=== PATIENT | male | born 1940 | race Caucasian/White ===

== ENCOUNTER 2018-03-22 14:35 | Emergency (ER) | payer MEDICARE, OTHER, SELFPAY ==
[2018-03-22 14:35] VITALS: BP 152/84; PULSE 66; RESP 18; TEMP 36.8; O2SAT 98
--- NOTE | 2018-03-22 14:54 | ED.NEUROSD ---
HPI - Neuro Symptoms/Deficit General Chief Complaint: Neuro Symptoms/Deficit Stated Complaint: DIZZY, NO BALANCE, DOUBLE VISION Time Seen by Provider: 03/22/18 14:47 Source: patient Mode of arrival: ambulatory Limitations: no limitations History of Present Illness HPI Narrative: Patient is a 77-year-old male with a history of TIAs on aspirin here for evaluation of double vision. Patient states that he has had occasional double vision over the past 3 days. He also states that when he gets that he becomes ?unsteady? he says that he sees 2 of things that are [id number]. He thinks that it does happen more often when he becomes ?fatigue ?he also states that if he thinks about he can overcome the double vision. He does state that the vision goes away when he covers 1 eye. He does have some blurry vision. He states that at the blurred vision is more in his right eye than the left eye. No headaches. No ringing in his ears. No vertigo. No chest pain. No palpitations. Has had cataract surgery in the past but no other eye surgeries. His last eye exam for his glasses was approximately 4 years ago. Related Data Home Medications Medication Instructions Recorded Confirmed aspirin 81 mg PO DAILY #0 11/03/17 03/22/18 Allergies Allergy/AdvReac Type Severity Reaction Status Date / Time No Known Drug Allergies Allergy Verified 03/22/18 15:07 Review of Systems Constitutional Denies fatigue, Denies fever(s), Denies frequent falls and Denies headache(s) Eyes Reports blurry vision, Reports change in vision, Reports diplopia, Denies irritation, Denies itchy eyes, Denies loss of vision, Denies seeing flashes, Denies photophobia and Denies spots in vision ENT Ears, Nose, Mouth, and Throat: Denies dental pain, Denies vertigo, Reports dizziness, Denies headache(s), Denies neck mass, Denies neck pain, Denies sore throat and Denies throat swelling Cardiovascular Denies chest pain, Denies syncope, Denies palpitations and Denies dyspnea Respiratory Denies cough and Denies dyspnea Gastrointestinal Gastrointestinal: Denies abdominal pain, Denies constipation, Denies diarrhea, Denies nausea and Denies vomiting Genitourinary Denies dysuria Musculoskeletal Denies myalgias, Denies arthralgias and Denies neck pain Integumentary/Breasts Denies lesions and Denies rash Neurologic Denies confusion, Denies vertigo, Reports dizziness, Denies syncope, Denies frequent falls, Denies headache(s), Denies loss of vision and Denies memory loss Psychiatric Denies confusion and Denies memory loss Endocrine Denies fatigue and Denies palpitations Hematologic/Lymphatic Denies easy bleeding and Denies easy bruising Allergic/Immunologic Denies itchy eyes and Denies throat swelling [facility] Medical History TIA (transient ischemic attack) (Acute) Social History Smoking Status: Never smoker Comment: Reviewed patient's past medical history surgical family and social history Exam Initial Vital Signs Initial Vital Signs: Vital Signs Temperature 98.2 F 03/22/18 14:35 Pulse Rate 66 03/22/18 14:35 Respiratory Rate 18 03/22/18 14:35 Blood Pressure 152/84 H 03/22/18 14:35 Pulse Oximetry 98 03/22/18 14:35 Const General: cooperative, healthy appearing, comfortable, well developed, well groomed and No acute distress Orientation: alert and oriented x3 HENMT Head: normal to inspection, normocephalic and atraumatic Eyes Other: Pupils equal round reactive to light Extraocular muscles intact With evaluation patient does see double. The double vision resolves when left and right eye are individually covered. With covering of the left eye double vision resolves however with uncover the eye does appear to have deviated medially which then improves when young cover this eye. Resp Effort & Inspection: normal respiratory effort Cardio Rate: regular rate Rhythm: regular rhythm Pulses: radial pulses present Skin Lesions: no lesions Rashes: no rashes Neuro General: alert, awake and oriented x3 Cranial Nerves: CN's II-XI intact bilaterally Cognition: normal cognition Speech: speech normal Gait: normal gait Motor: muscle tone normal throughout Extrem General: normal to inspection, full ROM and capillary refill normal Psych Appearance: grossly normal and well kempt Course Orders Ordered: ED Orders 03/22/18 14:52 EKG-12 Lead Stat 03/22/18 15:01 Complete Blood Count MAN DIFF Stat Partial Thromboplastin Time Stat Prothrombin Time INR Stat 03/22/18 15:25 Comprehensive Metabolic Panel Stat 03/22/18 15:27 CT head/brain wo con Stat Vital Signs - 8 hr 03/22/18 14:35 03/22/18 15:03 03/22/18 15:43 Temperature 98.2 F Pulse Rate 66 67 66 Respiratory Rate 18 14 16 Blood Pressure 152/84 H Blood Pressure [Right Arm] 133/97 H 141/85 H Pulse Oximetry 98 99 98 03/22/18 16:24 Temperature Pulse Rate 63 Respiratory Rate 15 Blood Pressure Blood Pressure [Right Arm] 161/98 H Pulse Oximetry 98 MDM - Neuro Symptoms/Deficit Lab Data Attestation: I reviewed the patient's lab results. Result diagrams: 03/22/18 15:01 03/22/18 15:25 Lab Results 03/22/18 03/22/18 03/22/18 Range/Units 15:01 15:01 15:25 WBC 8.4 (4.5-11.0) X10^3/uL RBC 4.91 (4.5-5.9) X10^6/uL Hgb 15.4 (13.5-17.5) g/dL Hct 44.4 (41-53) % MCV 90.4 (80-100) fL MCH 31.4 (26-34) PG MCHC 34.7 (30-36) % RDW 12.8 (11.6-14.8) % Plt Count 224 (150-400) X10^3/uL Total Counted 100 Seg Neutrophils % 53.0 (38-70) % Lymphocytes % (Manual) 29.0 (25-45) % Monocytes % (Manual) 12.0 H (2-11) % Eosinophils % (Manual) 5.0 H (2-4) % Basophils % (Manual) 1.0 (0-1) % Neutrophils # (Manual) 4452 (2137-9827) /uL RBC Morphology Normal morphology PT 11.9 (10.1-12.7) SECONDS INR 1.1 (0.9-1.3) APTT 30 (26.4-36.2) SECONDS Sodium 140 (137-145) mmol/L Potassium 4.4 (3.4-5.1) mmol/L Chloride 104 (98-107) mmol/L Carbon Dioxide 28 (22-32) mmol/L BUN 17 (9-20) mg/dL Creatinine 1.00 (0.66-1.25) mg/dL Estimated GFR > 60.0 (>60) mL/min BUN/Creatinine Ratio 17.0 (6-22) Glucose 90 (80-110) mg/dL Calcium 8.5 (8.4-10.2) mg/dL Total Bilirubin 0.4 (0.2-1.3) mg/dL AST 20 (17-59) IU/L ALT 25 (21-72) IU/L Alkaline Phosphatase 54 (38-126) U/L Total Protein 7.1 (6.3-8.2) g/dL Albumin 3.9 (3.5-5.0) g/dL Globulin 3.2 (1.7-4.1) g/dL Albumin/Globulin Ratio 1.2 (1.0-2.8) Urine Opiates Screen Ur Oxycodone Screen Urine Methadone Screen Ur Barbiturates Screen U Tricyclic Antidepress Ur Phencyclidine Scrn Ur Amphetamines Screen U Methamphetamines Scrn Ur MDMA Scrn (Ecstasy) U Benzodiazepines Scrn Urine Cocaine Screen U Marijuana (THC) Screen 03/22/18 Range/Units 16:18 WBC (4.5-11.0) X10^3/uL RBC (4.5-5.9) X10^6/uL Hgb (13.5-17.5) g/dL Hct (41-53) % MCV (80-100) fL MCH (26-34) PG MCHC (30-36) % RDW (11.6-14.8) % Plt Count (150-400) X10^3/uL Total Counted Seg Neutrophils % (38-70) % Lymphocytes % (Manual) (25-45) % Monocytes % (Manual) (2-11) % Eosinophils % (Manual) (2-4) % Basophils % (Manual) (0-1) % Neutrophils # (Manual) (3200-3099) /uL RBC Morphology PT (10.1-12.7) SECONDS INR (0.9-1.3) APTT (26.4-36.2) SECONDS Sodium (137-145) mmol/L Potassium (3.4-5.1) mmol/L Chloride (98-107) mmol/L Carbon Dioxide (22-32) mmol/L BUN (9-20) mg/dL Creatinine (0.66-1.25) mg/dL Estimated GFR (>60) mL/min BUN/Creatinine Ratio (6-22) Glucose (80-110) mg/dL Calcium (8.4-10.2) mg/dL Total Bilirubin (0.2-1.3) mg/dL AST (17-59) IU/L ALT (21-72) IU/L Alkaline Phosphatase (38-126) U/L Total Protein (6.3-8.2) g/dL Albumin (3.5-5.0) g/dL Globulin (1.7-4.1) g/dL Albumin/Globulin Ratio (1.0-2.8) Urine Opiates Screen Cancelled Ur Oxycodone Screen Cancelled Urine Methadone Screen Cancelled Ur Barbiturates Screen Cancelled U Tricyclic Antidepress Cancelled Ur Phencyclidine Scrn Cancelled Ur Amphetamines Screen Cancelled U Methamphetamines Scrn Cancelled Ur MDMA Scrn (Ecstasy) Cancelled U Benzodiazepines Scrn Cancelled Urine Cocaine Screen Cancelled U Marijuana (THC) Screen Cancelled Imaging Data CT scan - head: Radiologist's impression: PROCEDURE: CT HEAD/BRAIN WO CON INDICATIONS: Double vision TECHNIQUE: Noncontrast 4.5 mm thick angled axial sections acquired from the foramen magnum to the vertex, with coronal and sagittal reformats. For radiation dose reduction, the following was used: automated exposure control, adjustment of mA and/or kV according to patient size. COMPARISON: None. FINDINGS: Image quality: Excellent. CSF spaces: Basal cisterns are patent. No extra-axial fluid collections. The ventricles are symmetric in size and shape. Brain: No intracranial bleeds or masses. There is cerebral volume loss for age, with resultant ventricular and sulcal prominence. There are periventricular and deep white matter chronic small vessel ischemic changes. There is intracranial internal carotid artery atherosclerosis. Skull and face: Calvarium and visualized facial bones appear intact, without suspicious lesions. Sinuses: Visualized sinuses and mastoids are clear. IMPRESSION: No acute intracranial findings. Findings likely associated with chronic microvascular ischemic changes. Dictated by: Yuliet Roblero M.D. on 03/22/2018 at 16:01 Approved by: Yuliet Roblero M.D. on 03/22/2018 at 16:03 ECG Data Attestation: I personally reviewed and interpreted this ECG as follows: Prior ECG tracings: not available for review Interpretation: Sinus rhythm First degree AV block Ventricular rate is 73 P interval 260 milliseconds QRS 119 milliseconds QTC 416 milliseconds Left axis deviation Incomplete right bundle branch block Nonspecific ST T wave changes MDM Narrative Medical decision making narrative: Head CT is unremarkable. Patient has had symptoms for the past 3 days. 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 Patient does have a history of TIAs in the past however this is not consistent with his prior TIA symptoms which is normally slurring of his words. We did discuss the 6th nerve palsy. Informed him that he should see his eye doctor for a new evaluation since he has not seen them for 3 or 4 years. He was given return precautions. Will hold on further workup for now. He expressed understanding and agreement with plan Discharge Plan Departure Patient Disposition: Home, Self-Care Clinical Impression: Abducens (sixth) nerve palsy Discharge Date/Time: 03/22/18 16:30 Interventions: ED Discharge Assessment Last Done: 03/22/18 16:29 Instructions: DI for Double Vision Activity Restrictions/Additional Instructions: Recommend that you contact your eye provider to get another eye exam to make sure your glasses or the correct prescription. Contact your primary care doctor for a follow-up next week. Return to the emergency department for any new or worsening symptoms continue your aspirin as directed. Prescriptions: No Action aspirin 81 MG tablet,delayed release (DR/EC) 81 mg PO DAILY Qty: 0 RF: 0
[2018-03-22 15:03] VITALS: BP 133/97; PULSE 67; RESP 14; O2SAT 99
[2018-03-22 15:08] LABS: Hematocrit 44.4 % (41-53); Hemoglobin 15.4 g/dL (13.5-17.5); Mean Corpuscular HGB Conc 34.7 % (30-36); Mean Corpuscular Hemoglobin 31.4 PG (26-34); Mean Corpuscular Volume 90.4 fL (80-100); Platelet Count 224 X10^3/uL (150-400); Red Blood Cell Count 4.91 X10^6/uL (4.5-5.9); Red Cell Distribution Width 12.8 % (11.6-14.8); White Blood Cell Count 8.4 X10^3/uL (4.5-11.0)
[2018-03-22 15:22] LABS: INR 1.1 (0.9-1.3); Prothrombin Time 11.9 SECONDS (10.1-12.7)
[2018-03-22 15:25] LABS: PTT Partial Thromboplastin Tim 30 SECONDS (26.4-36.2)
--- NOTE | 2018-03-22 15:27 | DI.CT.S_ITS ---
PROCEDURE: CT HEAD/BRAIN WO CON INDICATIONS: Double vision TECHNIQUE: Noncontrast 4.5 mm thick angled axial sections acquired from the foramen magnum to the vertex, with coronal and sagittal reformats. For radiation dose reduction, the following was used: automated exposure control, adjustment of mA and/or kV according to patient size. COMPARISON: None. FINDINGS: Image quality: Excellent. CSF spaces: Basal cisterns are patent. No extra-axial fluid collections. The ventricles are symmetric in size and shape. Brain: No intracranial bleeds or masses. There is cerebral volume loss for age, with resultant ventricular and sulcal prominence. There are periventricular and deep white matter chronic small vessel ischemic changes. There is intracranial internal carotid artery atherosclerosis. Skull and face: Calvarium and visualized facial bones appear intact, without suspicious lesions. Sinuses: Visualized sinuses and mastoids are clear. IMPRESSION: No acute intracranial findings. Findings likely associated with chronic microvascular ischemic changes. Dictated by: Yuliet Roblero M.D. on 03/22/2018 at 16:01 Approved by: Yuliet Roblero M.D. on 03/22/2018 at 16:03
[2018-03-22 15:43] VITALS: BP 141/85; PULSE 66; RESP 16; O2SAT 98
[2018-03-22 15:48] LABS: Alanine Aminotransferase 25 IU/L (21-72); Albumin 3.9 g/dL (3.5-5.0); Albumin Globulin Ratio 1.2 (1.0-2.8); Alkaline Phosphatase 54 U/L (38-126); Aspartate Aminotransferase 20 IU/L (17-59); Bilirubin Total 0.4 mg/dL (0.2-1.3); Blood Urea Nitrogen 17 mg/dL (9-20); Calcium 8.5 mg/dL (8.4-10.2); Carbon Dioxide 28 mmol/L (22-32); Chloride 104 mmol/L (98-107); Estimated Glomerular Filt Rate > 60.0 mL/min (>60); Globulin 3.2 g/dL (1.7-4.1); Glucose 90 mg/dL (80-110); HEMOLYSIS < 15 (0-50); Potassium 4.4 mmol/L (3.4-5.1); Sodium 140 mmol/L (137-145); Total Protein 7.1 g/dL (6.3-8.2)
[2018-03-22 15:50] LABS: Neutrophils Absolute Manual 4452 /uL (3000-5900); Total Cells Counted 100
[2018-03-22 15:51] LABS: RBC Morphology Normal Morphology
[2018-03-22 16:24] VITALS: BP 161/98; PULSE 63; RESP 15; O2SAT 98
== END 2018-03-22 16:30 | disposition home or self-care (01) ==
PROVIDERS: Emergency Provider Emergency Medicine; Family Provider Family Medicine; PCP Family Medicine
DX: H49.20 Sixth [abducent] nerve palsy, unspecified eye (principal)
CPT/HCPCS: 36591; 70450; 80053; 85025; 85610; 85730; 93005; 99283; 99285; 99291

== ENCOUNTER → 2018-03-27 10:43 | Outpatient (CLI) | payer MEDICARE, OTHER, SELFPAY ==
[2018-03-27 15:35] LABS: Blood Urea Nitrogen 21 mg/dL (9-20); Calcium 8.6 mg/dL (8.4-10.2); Carbon Dioxide 24 mmol/L (22-32); Chloride 103 mmol/L (98-107); Estimated Glomerular Filt Rate > 60.0 mL/min (>60); Glucose 88 mg/dL (80-110); Sodium 139 mmol/L (137-145)
[2018-03-27 15:40] LABS: HEMOLYSIS 72 (0-50); Potassium 4.6 mmol/L (3.4-5.1)
== END ==
PROVIDERS: PCP Family Medicine; Visit Provider Ophthalmology
DX: M19.90 Unspecified osteoarthritis, unspecified site (principal); H53.2 Diplopia
CPT/HCPCS: 36415; 80048

== ENCOUNTER → 2018-04-07 07:02 | Outpatient (CLI) | payer MEDICARE, OTHER, SELFPAY ==
--- NOTE | 2018-04-07 | DI.MRI.S_ITS ---
PROCEDURE: MR STROKE Pre- and post-contrast brain MRI, non-contrast brain MR angiogram, pre- and postcontrast neck MR angiogram INDICATIONS: MR. STROKE TECHNIQUE: Brain: Noncontrast axial T1 spin echo, axial T2 fast spin echo, sagittal and axial FLAIR, coronal T2 fast spin echo, axial gradient echo, axial diffusion and ADC through the brain. After the administration of contrast, axial 3D VIBE of the cranial vasculature and brain. Brain MRA: Non-contrast 3-D time of flight MR angiogram, with multiple ockysms-ckyvvhhqm-yputotiqin (MIP) reformats performed. Neck MRA: Axial and sagittal TruFISP through the neck. Coronal dynamic MR angiogram during administration of contrast in the arterial and venous phases, with 3-dimenstional xeorkqe-ntfwyoeyb-cufuyuwxsf (MIP) reformats constructed from subtraction images. COMPARISON: [facility], , STROKE PROTOCOL, 10/20/2013, 11:42. FINDINGS: Image quality: Excellent. BRAIN: CSF spaces: Ventricles are normal in size and shape. Basal cisterns are patent. No extra-axial fluid collections. Brain: No intracranial bleeds or mass effects. Mcgraw-white matter interface is normal. Diffusion weighted images show no acute ischemic insults. Moderate diffuse cerebral and loss. Mild patchy low signal within the periventricular and subcortical white matter, consistent with small vessel ischemic disease, as before. Brainstem appears normal. Normal intravascular flow voids are present. No abnormal intracranial enhancement. Skull and face: Calvarial marrow signal is normal. Orbits appear normal. Sinuses: Sinuses and mastoids are clear. BRAIN MR ANGIOGRAM: Anterior circulation: Intracranial internal carotid arteries are normal in size and enhancement. The flow within the paired anterior cerebral arteries is normal and symmetric. The flow within the middle cerebral arteries is normal and symmetric. The anterior communicating artery is seen. No stenoses, occlusions, or aneurysms. Posterior circulation: The visualized portions of the vertebral arteries demonstrate normal caliber, and join to form a normal appearing basilar artery. The flow within the posterior cerebral arteries is normal and symmetric. No stenoses, occlusions, or aneurysms. NECK MR ANGIOGRAM: Carotids: Great vessels demonstrate a conventional anatomy as they arise from the aortic arch. The origins of the common carotid arteries appear patent. The calibers and courses of both common carotid arteries are normal. The bifurcation regions appear normal bilaterally. Left internal carotid artery pharyngeal loop is present. The internal carotid arteries otherwise demonstrate normal course and caliber. Posterior circulation: High-grade right vertebral artery origin stenosis. Left vertebral artery origin is patent.. More superior portions of both vertebral arteries demonstrate normal course and caliber, and join to form a normal appearing basilar artery. Miscellaneous: Subclavian arteries appear patent. Pre-contrast images through the neck show no soft tissue abnormalities. IMPRESSION: BRAIN MRI: 1. Volume loss and small vessel ischemic disease. 2. No acute process. No recent infarct. BRAIN MR ANGIOGRAM: Negative cerebral MR angiography. NECK MR ANGIOGRAM: 1. No internal carotid artery stenosis bilaterally. 2. High-grade right vertebral artery origin stenosis. Patent left vertebral artery. Dictated by: Piyush Celeste M.D. on 04/07/2018 at 12:33 Approved by: Piyush Celeste M.D. on 04/07/2018 at 12:39
== END ==
PROVIDERS: Family Provider Family Medicine; PCP Family Medicine; Visit Provider Family Medicine
DX: H53.2 Diplopia (principal); I65.01 Occlusion and stenosis of right vertebral artery
CPT/HCPCS: 70553; 83519; A9579

== ENCOUNTER 2019-03-02 14:33 | Observation (INO) | payer MEDICARE, OTHER, SELFPAY ==
[2019-03-02] VITALS (10 sets, daily range): BP systolic 108–189; BP diastolic 92–115; PULSE 64–84; RESP 11–20; TEMP 36.7–37; O2SAT 93–99; BMI 34.6
--- NOTE | 2019-03-02 14:45 | DI.CT.S_ITS ---
PROCEDURE: CT ANGIO HEAD AND NECK INDICATIONS: expressive aphasia, improving, but intermittent symptoms. TECHNIQUE: Pre-contrast 4.5 mm thick sections acquired from the foramen magnum to the vertex. After the administration of intravenous contrast, 1 mm thick sections acquired from the aortic arch through the [place]. Post-contrast 4.5 mm thick sections then re-acquired from the foramen magnum to the vertex. 3-dimensional rvxzpvf-puoicatlu-bgjtumprxl (MIP) and/or volume rendering reformats were acquired of the central intracranial vasculature and neck separately. COMPARISON: [facility], CT, CT HEAD/BRAIN WO CON, 03/02/2019, 14:47. FINDINGS: Image quality: Excellent. BRAIN: CSF spaces: Ventricles are normal in size and shape. Basal cisterns are patent. No extra-axial fluid collections. Brain: No midline shift. No intracranial bleeds or masses. Mcgraw-white matter interface appears intact. Skull and face: Calvarium and facial bones appear intact, without suspicious lesions. Orbits appear normal. Sinuses: Sinuses and mastoids are clear. HEAD CT ANGIOGRAPHY: Anterior circulation: Intracranial internal carotid arteries are normal in size and flow. The flow within the paired anterior cerebral arteries is normal and symmetric. The flow within the middle cerebral arteries is normal and symmetric. The anterior communicating artery is seen. No aneurysms are seen. Posterior circulation: Visualized portions of the vertebral arteries demonstrate normal caliber, and join to form a normal appearing basilar artery. Flow within the posterior cerebral arteries is normal and symmetric. No aneurysms are seen. NECK CT ANGIOGRAPHY: Carotid system: The great vessels demonstrate a conventional anatomy as they arise from the aortic arch. The origins of the common carotid arteries appear patent. The common carotid arteries demonstrate normal caliber and courses. The bifurcation regions are both widely patent with only a slight degree of calcific plaque narrowing the proximal internal carotid arteries bilaterally too small to be. The internal carotid arteries demonstrate normal calibers and courses. Posterior circulation: The origins of the vertebral arteries both appear widely patent. The more superior extracranial portions of both vertebral arteries also demonstrate normal courses and calibers. They join to form a normal appearing basilar artery. Soft tissues: Visualized neck soft tissues demonstrate no suspicious abnormalities. Bones: No suspicious bony lesions. Visualized cervical spine appears normally aligned. IMPRESSION: Mild atherosclerotic irregularity involving the proximal internal carotid arteries bilaterally with less than 10% stenosis produced by atherosclerotic calcific plaquing. No aneurysm or dissection is found. Portions of the brachiocephalic arteries are poorly seen due to extensive metal artifact from bilateral shoulder arthroplasties, and also a portion of the skull base arterial vasculature is somewhat poorly seen due to metal artifact from extensive dental work. Any quantitative measurements of stenosis were performed using NASCET criteria. Dictated by: Alexis Mims M.D. on 03/02/2019 at 16:13 Approved by: Alexis Mims M.D. on 03/02/2019 at 16:17
--- NOTE | 2019-03-02 14:45 | ED.NEUROSD ---
HPI - Neuro Symptoms/Deficit General Chief Complaint: Neuro Symptoms/Deficit Stated Complaint: POSSIBLE TIA Time Seen by Provider: 03/02/19 14:37 Source: patient and family () Mode of arrival: ambulatory Limitations: no limitations History of Present Illness HPI Narrative: 78-year-old male comes to the emergency department with complaint of possible TIA. Patient has had issues with expressive aphasia most recently starting in about heart hour prior arrival although it is improving. Patient states that he has had 2 maybe 3 episodes in the last 24 hours had episodes like this in the past probably 6 or 7 total. Patient states that some he takes an aspirin 324 mg daily he had 648 total mg of aspirin today. He does have an headache he denies any vision changes, he states he understands but has difficulty with speech. He states right now it is better although he has to concentrate a little bit. But he can say what he wants. According to him and his significant other earlier he could not say anything other than yes or no answers. Patient has not had any facial droop, no weakness on left versus right, no chest pain, no shortness of breath, no nausea vomiting no other GI or urinary symptoms. Patient takes medication for GERD, insomnia and takes potassium replaced his [id number] or cramping. Has a history of shoulder and knee replacements x2 as well as appendectomy. Dr. Cortes was his primary care he is being transferred to Dr. Noguera the new physician replacing Sebastian denies tobacco, occasional alcohol, no illicit. On Anticoagulants: Yes (ASA 325mg) Related Data Home Medications Medication Instructions Recorded Confirmed aspirin 81 mg PO DAILY #0 11/03/17 03/02/19 hydrocodone-chlorpheniramine 5 ml PO Q12H PRN 03/02/19 03/02/19 meloxicam 15 mg PO DAILY PRN 03/02/19 03/02/19 multivitamin 1 tab PO DAILY 03/02/19 03/02/19 omeprazole 20 mg PO DAILY 03/02/19 03/02/19 sildenafil (antihypertensive) 40 - 100 mg PO PRN PRN 03/02/19 03/02/19 Allergies Allergy/AdvReac Type Severity Reaction Status Date / Time No Known Drug Allergies Allergy Verified 03/02/19 14:45 Review of Systems Review of Systems ROS Unobtainable: All systems reviewed & are unremarkable except as noted in HPI and below Constitutional Denies chills, Denies fever(s), Denies lethargy and Denies weakness Eyes Denies change in vision ENT Ears, Nose, Mouth, and Throat: Denies vertigo and Denies other (facial dropp) Cardiovascular Denies chest pain, Denies irregular heart rhythm, Denies lightheadedness, Denies palpitations, Denies dyspnea, Denies dyspnea on exertion and Denies orthopnea Respiratory Denies dyspnea and Denies dyspnea on exertion Gastrointestinal Gastrointestinal: Denies abdominal pain, Denies change in bowel habits, Denies diarrhea, Denies nausea and Denies vomiting Genitourinary Denies hematuria, Denies flank pain, Denies urinary frequency, Denies urinary incontinence and Denies urinary urgency Musculoskeletal Denies abnormal gait, Denies muscle weakness and Denies numbness Neurologic Denies abnormal movements, Reports abnormal speech, Denies abnormal gait, Denies confusion, Denies vertigo, Denies focal weakness, Denies numbness, Denies sensory deficit and Denies weakness Psychiatric Denies confusion Endocrine Denies palpitations [facility] Medical History (Updated 03/02/19 @ 17:07 by Shelley Carroll DO) GERD (gastroesophageal reflux disease) (Chronic) Insomnia (Chronic) TIA (transient ischemic attack) (Acute) Social History Smoking Status: Never smoker Social History (Updated 03/02/19 @ 14:50 by Shelley Carroll DO) Smoking Status: Never smoker alcohol intake: current substance use type: does not use Exam Narrative Exam Narrative: GEN: well nourished, well appearing male, alert and oriented x 3, patient appears to be in mild distress. HEENT: Atraumatic, pupils are equal round reactive to light, extraocular movements are intact, nares are clear, TMs are clear with no fluid, there is no conjunctival pallor. Throat is clear without any exudates, erythema, tonsillar enlargement or uvular deviation, no facial droop. HEART: Regular rate and rhythm without murmur, clicks, rubs. No carotid bruits, pulses are equal in upper and lower extremities LUNGS:Lungs clear to auscultation, no wheezes, rales, crackles, chest moves symmetrically ABD:bowel sounds normal, soft, non-tender, no guarding, rebound, rigidity, no masses noted, no hepatosplenomegaly :No CVA tenderness MSCL: Non-tender, no muscle atrophy, muscles strength 5/5 upper and lower extremities, full range of motion, normal gait NEURO:CN 2-12 intact, sensation normal, reflexes 2/4 upper and lower extremities. finger nose finger test normal, heel dorman test normal, patient has some very mild aphasia. Sometimes doubles over words. Initial Vital Signs Initial Vital Signs: Vital Signs Temperature 98.6 F 03/02/19 14:35 Pulse Rate 84 03/02/19 14:35 Respiratory Rate 18 03/02/19 14:35 Blood Pressure 142/95 H 03/02/19 14:35 Pulse Oximetry 96 03/02/19 14:35 Scores NIH Stroke Scale Level of Conciousness: Alert, keenly responsive Ask month/age: Answers both questions correctly. Open/close eyes, close hand: Performs both tasks correctly Best gaze horizontal: Normal Visual floyd: No visual loss Facial palsy: Normal symetrical movement Left arm drift: No drift for full 10 sec Right arm drift: No drift for full 10 sec Left leg drift: No drift for full 10 sec Right leg drift: No drift for full 10 sec Limb ataxia: Absent Sensory on face/arms/legs: Normal, no sensory loss Best language: No aphasia, normal Dysarthria: Normal Extinction or inattention: No abnormality Total NIH Stroke scale score: 0 Course Orders Ordered: ED Orders 03/02/19 14:36 Basic Metabolic Panel Stat Complete Blood Count AUTO DIFF Stat Partial Thromboplastin Time Stat Prothrombin Time INR Stat 03/02/19 14:41 EKG-12 Lead Stat 03/02/19 14:45 CT angio head and neck Stat 03/02/19 14:50 CT head/brain wo con Stat 03/02/19 16:15 Urine Drug Screen, Rapid Stat Urine Microscopic Stat Sodium Chloride (Normal Saline 0.9%) 1,000 mls @ 150 mls/hr IV CONT KALANI Last Infusion: 03/02/19 18:13 Dose: 150 mls/hr Admin: 03/02/19 15:13 Dose: 150 mls/hr Discontinued Medications Acetaminophen (Tylenol) 650 mg PO NOW ONE Stop: 03/02/19 16:14 Last Admin: 03/02/19 16:16 Dose: 650 mg Clopidogrel Bisulfate (Plavix) 300 mg PO NOW ONE Stop: 03/02/19 17:05 Vital Signs - 8 hr 03/02/19 14:35 03/02/19 14:45 03/02/19 15:00 Temperature 98.6 F Pulse Rate 84 77 76 Respiratory Rate 18 17 11 L Blood Pressure 142/95 H Blood Pressure [Right Arm] 148/98 H 108/94 H Pulse Oximetry 96 93 94 03/02/19 15:30 03/02/19 16:00 03/02/19 16:30 Temperature Pulse Rate 77 71 65 Respiratory Rate 19 18 13 Blood Pressure Blood Pressure [Right Arm] 148/95 H 146/103 H 166/105 H Pulse Oximetry 95 98 96 03/02/19 17:00 03/02/19 17:30 03/02/19 18:05 Temperature 98.0 F Pulse Rate 64 65 66 Respiratory Rate 15 16 20 Blood Pressure 138/107 H Blood Pressure [Right Arm] 189/101 H 172/115 H Pulse Oximetry 97 99 97 MDM - Neuro Symptoms/Deficit Lab Data Attestation: I reviewed the patient's lab results. Result diagrams: 03/02/19 14:36 03/02/19 14:36 Lab Results 03/02/19 03/02/19 03/02/19 Range/Units 14:36 14:36 14:36 WBC 12.5 H (4.5-11.0) X10^3/uL RBC 5.13 (4.5-5.9) X10^6/uL Hgb 15.9 (13.5-17.5) g/dL Hct 46.3 (41-53) % MCV 90.3 (80-100) fL MCH 30.9 (26-34) PG MCHC 34.3 (30-36) % RDW 12.7 (11.6-14.8) % Plt Count 217 (150-400) X10^3/uL Neut % (Auto) 70.4 (50-75) % Lymph % (Auto) 19.3 L (25-40) % [place] % (Auto) 8.0 (3-14) % Eos % (Auto) 1.6 L (2-4) % Baso % (Auto) 0.7 (0-2) % Neut # (Auto) 8800 H (8747-4407) /uL Lymph # (Auto) 2400 (0098-6172) /uL [place] # (Auto) 1000 H (0-900) /uL Eos # (Auto) 200 (0-450) /uL Baso # (Auto) 100 (0-100) /uL PT 11.9 (10.1-12.7) SECONDS INR 1.0 (0.9-1.3) APTT 31 (26.4-36.2) SECONDS Sodium 138 (137-145) mmol/L Potassium 4.3 (3.4-5.1) mmol/L Chloride 103 (98-107) mmol/L Carbon Dioxide 26 (22-32) mmol/L BUN 19 (9-20) mg/dL Creatinine 1.20 (0.66-1.25) mg/dL Estimated GFR 58.3 L (>60) mL/min BUN/Creatinine Ratio 15.8 (6-22) Glucose 112 H (80-110) mg/dL Calcium 8.4 (8.4-10.2) mg/dL Urine RBC (0-5/HPF) Urine WBC (0-5/HPF) Urine Bacteria (None) Ur Culture Indicated? Urine Opiates Screen (Negative) Ur Oxycodone Screen (Negative) Urine Methadone Screen (Negative) Ur Barbiturates Screen (Negative) U Tricyclic Antidepress (Negative) Ur Phencyclidine Scrn (Negative) Ur Amphetamines Screen (Negative) U Methamphetamines Scrn (Negative) Ur MDMA Scrn (Ecstasy) (Negative) U Benzodiazepines Scrn (Negative) Urine Cocaine Screen (Negative) U Marijuana (THC) Screen (Negative) 03/02/19 03/02/19 Range/Units 16:15 16:15 WBC (4.5-11.0) X10^3/uL RBC (4.5-5.9) X10^6/uL Hgb (13.5-17.5) g/dL Hct (41-53) % MCV (80-100) fL MCH (26-34) PG MCHC (30-36) % RDW (11.6-14.8) % Plt Count (150-400) X10^3/uL Neut % (Auto) (50-75) % Lymph % (Auto) (25-40) % [place] % (Auto) (3-14) % Eos % (Auto) (2-4) % Baso % (Auto) (0-2) % Neut # (Auto) (8212-9054) /uL Lymph # (Auto) (0033-5847) /uL [place] # (Auto) (0-900) /uL Eos # (Auto) (0-450) /uL Baso # (Auto) (0-100) /uL PT (10.1-12.7) SECONDS INR (0.9-1.3) APTT (26.4-36.2) SECONDS Sodium (137-145) mmol/L Potassium (3.4-5.1) mmol/L Chloride (98-107) mmol/L Carbon Dioxide (22-32) mmol/L BUN (9-20) mg/dL Creatinine (0.66-1.25) mg/dL Estimated GFR (>60) mL/min BUN/Creatinine Ratio (6-22) Glucose (80-110) mg/dL Calcium (8.4-10.2) mg/dL Urine RBC 0-1/hpf (0-5/HPF) Urine WBC 0-1/hpf (0-5/HPF) Urine Bacteria None seen (None) Ur Culture Indicated? Cult not indicated Urine Opiates Screen Positive H (Negative) Ur Oxycodone Screen Negative (Negative) Urine Methadone Screen Negative (Negative) Ur Barbiturates Screen Negative (Negative) U Tricyclic Antidepress Negative (Negative) Ur Phencyclidine Scrn Negative (Negative) Ur Amphetamines Screen Negative (Negative) U Methamphetamines Scrn Negative (Negative) Ur MDMA Scrn (Ecstasy) Negative (Negative) U Benzodiazepines Scrn Negative (Negative) Urine Cocaine Screen Negative (Negative) U Marijuana (THC) Screen Negative (Negative) Point of Care Testing Glucose POC 108 Urine Dip Bedside Urine Glucose Negative Bedside Urine Bilirubin + 1 Bedside Urine Ketone +/- 5 Urine Specific [place] 6.5 Bedside Urine Occult Blood +/- Bedside Urine Protein +/- 15 Bedside Urine Urobilinogen 1+ 2mg Bedside Urine Nitrite - Negative Bedside Urine Leukocytes - Negative Esterase Imaging Data CT scan - head: Radiologist's impression: [address] [address] [address] Scan Report Signed Patient: Shilpa Mcbride#: [id number] : 8Acct:[id number] Age/Sex: 78 / MDate of Service: 03/02/19 Loc: ED Accession Number: [id number] Procedure: CT head/brain wo con Ordering Provider: Shelley Carroll D.O. PROCEDURE: CT HEAD/BRAIN WO CON INDICATIONS: expressive aphasia, improved but intermittent since yesterday TECHNIQUE: Noncontrast 4.5 mm thick angled axial sections acquired from the foramen magnum to the vertex, with coronal and sagittal reformats. For radiation dose reduction, the following was used: automated exposure control, adjustment of mA and/or kV according to patient size. COMPARISON: [facility], CT, CT HEAD/BRAIN WO CON, 03/22/2018, 15:40. [facility], CT, HEAD WITHOUT CONTRAST, 11/03/2017, 16:45. FINDINGS: Image quality: Excellent. CSF spaces: Basal cisterns are patent. No extra-axial fluid collections. The ventricles are symmetric in size and shape. Brain: No intracranial bleeds or masses. There is cerebral volume loss for age, with resultant ventricular and sulcal prominence. There are periventricular and deep white matter chronic small vessel ischemic changes. There is intracranial internal carotid artery atherosclerosis. Skull and face: Calvarium and visualized facial bones appear intact, without suspicious lesions. Sinuses: Visualized sinuses and mastoids are clear. IMPRESSION: Normal for age, source of current expressive aphasia symptoms is not seen. Dictated by: Alexis Mims M.D. on 03/02/2019 at 15:04 Approved by: Alexis Mims M.D. on 03/02/2019 at 15:04 ECG Data Attestation: I personally reviewed and interpreted this ECG as follows: Interpretation: Sinus rhythm with first-degree AV block, marked left axis deviation. Rate 80 P are 235 QRS of 127 QTC of 423. No ST changes appreciated. [facility] Narrative Medical decision making narrative: Patient has had is ASA 324 mg, head CT is negative, CTA was pending. If no occlusion plan for admission with patient's intermittent TIA symptoms. Patient would likely benefit for some risk factor modification and further evaluation. Lab shows slightly elevated white count, coags are normal electrolytes do not show any major, patient's electrolytes not show any major lab abnormalities. CTA shows a little bit, 10% stenosis but no other acute findings. I spoke with Dr. Barcenas who accepts has patient has had multiple episodes that are similar to a TIA with stuttering symptoms. Although patient is initially reluctant but then and is agreeable. Does not sound like he has had much evaluation for risk factor modification and would benefit from this. NIH is 0 on exam. Patient has not had any recurrence of symptoms while in the ER. Discharge Plan Departure Patient Disposition: Admitted as Observation Clinical Impression: TIA (transient ischemic attack) Discharge Date/Time: 03/02/19 18:13 Interventions: ED Discharge Assessment Last Done: 03/02/19 18:13 Referrals: Glen Cortes MD [Primary Care Provider] - Admit Date/Time: 03/02/19 17:23 Admit Provider: Roddy Barcenas
[2019-03-02 14:51] LABS: Add Manual Diff / Slide Review NO; Basophils Absolute Auto 100 /uL (0-100); Basophils Percent Auto 0.7 % (0-2); Eosinophils Absolute Auto 200 /uL (0-450); Eosinophils Percent Auto 1.6 % (2-4); Hematocrit 46.3 % (41-53); Hemoglobin 15.9 g/dL (13.5-17.5); Lymphocytes Absolute Auto 2400 /uL (1100-4500); Lymphocytes Percent Auto 19.3 % (25-40); Mean Corpuscular HGB Conc 34.3 % (30-36); Mean Corpuscular Hemoglobin 30.9 PG (26-34); Mean Corpuscular Volume 90.3 fL (80-100); Monocytes Absolute Auto 1000 /uL (0-900); Neutrophils Absolute Auto 8800 /uL (1500-7000); Neutrophils Percent Auto 70.4 % (50-75); Platelet Count 217 X10^3/uL (150-400); Red Blood Cell Count 5.13 X10^6/uL (4.5-5.9); Red Cell Distribution Width 12.7 % (11.6-14.8); White Blood Cell Count 12.5 X10^3/uL (4.5-11.0)
--- NOTE | 2019-03-02 14:51 | ED_ITS ---
HPI - Neuro Symptoms/Deficit General Chief Complaint: Neuro Symptoms/Deficit Stated Complaint: POSSIBLE TIA Time Seen by Provider: 03/02/19 14:37 Source: patient and family () Mode of arrival: ambulatory Limitations: no limitations History of Present Illness HPI Narrative: 78-year-old male comes to the emergency department with complaint of possible TIA. Patient has had issues with expressive aphasia most recently starting in about heart hour prior arrival although it is improving. Patient states that he has had 2 maybe 3 episodes in the last 24 hours had episodes like this in the past probably 6 or 7 total. Patient states that some he takes an aspirin 324 mg daily he had 648 total mg of aspirin today. He does have an headache he denies any vision changes, he states he understands but has difficulty with speech. He states right now it is better although he has to concentrate a little bit. But he can say what he wants. According to him and his significant other earlier he could not say anything other than yes or no answers. Patient has not had any facial droop, no weakness on left versus r ight, no chest pain, no shortness of breath, no nausea vomiting no other GI or urinary symptoms. Patient takes medication for GERD, insomnia and takes potassium replaced his [id number] or cramping. Has a history of shoulder and knee replacements x2 as well as appendectomy. Dr. Cortes was his primary care he is being transferred to Dr. Noguera the new physician replacing Sebastian denies tobacco, occasional alcohol, no illicit. On Anticoagulants: Yes (ASA 325mg) Related Data Home Medications Medication Instructions Recorded Confirmed aspirin 81 mg PO DAILY #0 11/03/17 03/02/19 hydrocodone-chlorpheniramine 5 ml PO Q12H PRN 03/02/19 03/02/19 meloxicam 15 mg PO DAILY PRN 03/02/19 03/02/19 multivitamin 1 tab PO DAILY 03/02/19 03/02/19 omeprazole 20 mg PO DAILY 03/02/19 03/02/19 sildenafil (antihypertensive) 40 - 100 mg PO PRN PRN 03/02/19 03/02/19 Allergies Allergy/AdvReac Type Severity Reaction Status Date / Time No Known Drug Allergies Allergy Verified 03/02/19 14:45 Review of Systems Review of Systems ROS Unobtainable: All systems reviewed & are unremarkable except as noted in HPI and below Constitutional Denies chills, Denies fever(s), Denies lethargy and Denies weakness Eyes Denies change in vision ENT Ears, Nose, Mouth, and Throat: Denies vertigo and Denies other (facial dropp) Cardiovascular Denies chest pain, Denies irregular heart rhythm, Denies lightheadedness, Denies palpitations, Denies dyspnea, Denies dyspnea on exertion and Denies orthopnea Respiratory Denies dyspnea and Denies dyspnea on exertion Gastrointestinal Gastrointestinal: Denies abdominal pain, Denies change in bowel habits, Denies diarrhea, Denies nausea and Denies vomiting Genitourinary Denies hematuria, Denies flank pain, Denies urinary frequency, Denies urinary incontinence and Denies urinary urgency Musculoskeletal Denies abnormal gait, Denies muscle weakness and Denies numbness Neurologic Denies abnormal movements, Reports abnormal speech, Denies abnormal gait, Denies confusion, Denies vertigo, Denies focal weakness, Denies numbness, Denies sensory deficit and Denies weakness Psychiatric Denies confusion Endocrine Denies palpitations [facility] Medical History (Updated 03/02/19 @ 17:07 by Shelley Carroll DO) GERD (gastroesophageal reflux disease) (Chronic) Insomnia (Chronic) TIA (transient ischemic attack) (Acute) Social History Smoking Status: Never smoker Social History (Updated 03/02/19 @ 14:50 by Shelley Carroll DO) Smoking Status: Never smoker alcohol intake: current substance use type: does not use Exam Narrative Exam Narrative: GEN: well nourished, well appearing male, alert and oriented x 3, patient appears to be in mild distress. HEENT: Atraumatic, pupils are equal round reactive to light, extraocular movements are intact, nares are clear, TMs are clear with no fluid, there is no conjunctival pallor. Throat is clear without any exudates, erythema, tonsillar enlargement or uvular deviation, no facial droop. HEART: Regular rate and rhythm without murmur, clicks, rubs. No carotid bruits, pulses are equal in upper and lower extremities LUNGS:Lungs clear to auscultation, no wheezes, rales, crackles, chest moves symmetrically ABD:bowel sounds normal, soft, non-tender, no guarding, rebound, rigidity, no masses noted, no hepatosplenomegaly :No CVA tenderness MSCL: Non-tender, no muscle atrophy, muscles strength 5/5 upper and lower extremities, full range of motion, normal gait NEURO:CN 2-12 intact, sensation normal, reflexes 2/4 upper and lower extremities. finger nose finger test normal, heel dorman test normal, patient has some very mild aphasia. Sometimes doubles over words. Initial Vital Signs Initial Vital Signs: Vital Signs Temperature 98.6 F 03/02/19 14:35 Pulse Rate 84 03/02/19 14:35 Respiratory Rate 18 03/02/19 14:35 Blood Pressure 142/95 H 03/02/19 14:35 Pulse Oximetry 96 03/02/19 14:35 Scores NIH Stroke Scale Level of Conciousness: Alert, keenly responsive Ask month/age: Answers both questions correctly. Open/close eyes, close hand: Performs both tasks correctly Best gaze horizontal: Normal Visual floyd: No visual loss Facial palsy: Normal symetrical movement Left arm drift: No drift for full 10 sec Right arm drift: No drift for full 10 sec Left leg drift: No drift for full 10 sec Right leg drift: No drift for full 10 sec Limb ataxia: Absent Sensory on face/arms/legs: Normal, no sensory loss Best language: No aphasia, normal Dysarthria: Normal Extinction or inattention: No abnormality Total NIH Stroke scale score: 0 Course Orders Ordered: ED Orders 03/02/19 14:36 Basic Metabolic Panel Stat Complete Blood Count AUTO DIFF Stat Partial Thromboplastin Time Stat Prothrombin Time INR Stat 03/02/19 14:41 EKG-12 Lead Stat 03/02/19 14:45 CT angio head and neck Stat 03/02/19 14:50 CT head/brain wo con Stat 03/02/19 16:15 Urine Drug Screen, Rapid Stat Urine Microscopic Stat Sodium Chloride (Normal Saline 0.9%) 1,000 mls @ 150 mls/hr IV CONT KALANI Last Infusion: 03/02/19 18:13 Dose: 150 mls/hr Admin: 03/02/19 15:13 Dose: 150 mls/hr Discontinued Medications Acetaminophen (Tylenol) 650 mg PO NOW ONE Stop: 03/02/19 16:14 Last Admin: 03/02/19 16:16 Dose: 650 mg Clopidogrel Bisulfate (Plavix) 300 mg PO NOW ONE Stop: 03/02/19 17:05 Vital Signs - 8 hr 03/02/19 14:35 03/02/19 14:45 03/02/19 15:00 Temperature 98.6 F Pulse Rate 84 77 76 Respiratory Rate 18 17 11 L Blood Pressure 142/95 H Blood Pressure [Right Arm] 148/98 H 108/94 H Pulse Oximetry 96 93 94 03/02/19 15:30 03/02/19 16:00 03/02/19 16:30 Temperature Pulse Rate 77 71 65 Respiratory Rate 19 18 13 Blood Pressure Blood Pressure [Right Arm] 148/95 H 146/103 H 166/105 H Pulse Oximetry 95 98 96 03/02/19 17:00 03/02/19 17:30 03/02/19 18:05 Temperature 98.0 F Pulse Rate 64 65 66 Respiratory Rate 15 16 20 Blood Pressure 138/107 H Blood Pressure [Right Arm] 189/101 H 172/115 H Pulse Oximetry 97 99 97 MDM - Neuro Symptoms/Deficit Lab Data Attestation: I reviewed the patient's lab results. Result diagrams: 03/02/19 14:36 03/02/19 14:36 Lab Results 03/02/19 03/02/19 03/02/19 Range/Units 14:36 14:36 14:36 WBC 12.5 H (4.5-11.0) X10^3/uL RBC 5.13 (4.5-5.9) X10^6/uL Hgb 15.9 (13.5-17.5) g/dL Hct 46.3 (41-53) % MCV 90.3 (80-100) fL MCH 30.9 (26-34) PG MCHC 34.3 (30-36) % RDW 12.7 (11.6-14.8) % Plt Count 217 (150-400) X10^3/uL Neut % (Auto) 70.4 (50-75) % Lymph % (Auto) 19.3 L (25-40) % [place] % (Auto) 8.0 (3-14) % Eos % (Auto) 1.6 L (2-4) % Baso % (Auto) 0.7 (0-2) % Neut # (Auto) 8800 H (3210-8914) /uL Lymph # (Auto) 2400 (4473-8054) /uL [place] # (Auto) 1000 H (0-900) /uL Eos # (Auto) 200 (0-450) /uL Baso # (Auto) 100 (0-100) /uL PT 11.9 (10.1-12.7) SECONDS INR 1.0 (0.9-1.3) APTT 31 (26.4-36.2) SECONDS Sodium 138 (137-145) mmol/L Potassium 4.3 (3.4-5.1) mmol/L Chloride 103 (98-107) mmol/L Carbon Dioxide 26 (22-32) mmol/L BUN 19 (9-20) mg/dL Creatinine 1.20 (0.66-1.25) mg/dL Estimated GFR 58.3 L (>60) mL/min BUN/Creatinine Ratio 15.8 (6-22) Glucose 112 H (80-110) mg/dL Calcium 8.4 (8.4-10.2) mg/dL Urine RBC (0-5/HPF) Urine WBC (0-5/HPF) Urine Bacteria (None) Ur Culture Indicated? Urine Opiates Screen (Negative) Ur Oxycodone Screen (Negative) Urine Methadone Screen (Negative) Ur Barbiturates Screen (Negative) U Tricyclic Antidepress (Negative) Ur Phencyclidine Scrn (Negative) Ur Amphetamines Screen (Negative) U Methamphetamines Scrn (Negative) Ur MDMA Scrn (Ecstasy) (Negative) U Benzodiazepines Scrn (Negative) Urine Cocaine Screen (Negative) U Marijuana (THC) Screen (Negative) 03/02/19 03/02/19 Range/Units 16:15 16:15 WBC (4.5-11.0) X10^3/uL RBC (4.5-5.9) X10^6/uL Hgb (13.5-17.5) g/dL Hct (41-53) % MCV (80-100) fL MCH (26-34) PG MCHC (30-36) % RDW (11.6-14.8) % Plt Count (150-400) X10^3/uL Neut % (Auto) (50-75) % Lymph % (Auto) (25-40) % [place] % (Auto) (3-14) % Eos % (Auto) (2-4) % Baso % (Auto) (0-2) % Neut # (Auto) (7004-1996) /uL Lymph # (Auto) (3326-4485) /uL [place] # (Auto) (0-900) /uL Eos # (Auto) (0-450) /uL Baso # (Auto) (0-100) /uL PT (10.1-12.7) SECONDS INR (0.9-1.3) APTT (26.4-36.2) SECONDS Sodium (137-145) mmol/L Potassium (3.4-5.1) mmol/L Chloride (98-107) mmol/L Carbon Dioxide (22-32) mmol/L BUN (9-20) mg/dL Creatinine (0.66-1.25) mg/dL Estimated GFR (>60) mL/min BUN/Creatinine Ratio (6-22) Glucose (80-110) mg/dL Calcium (8.4-10.2) mg/dL Urine RBC 0-1/hpf (0-5/HPF) Urine WBC 0-1/hpf (0-5/HPF) Urine Bacteria None seen (None) Ur Culture Indicated? Cult not indicated Urine Opiates Screen Positive H (Negative) Ur Oxycodone Screen Negative (Negative) Urine Methadone Screen Negative (Negative) Ur Barbiturates Screen Negative (Negative) U Tricyclic Antidepress Negative (Negative) Ur Phencyclidine Scrn Negative (Negative) Ur Amphetamines Screen Negative (Negative) U Methamphetamines Scrn Negative (Negative) Ur MDMA Scrn (Ecstasy) Negative (Negative) U Benzodiazepines Scrn Negative (Negative) Urine Cocaine Screen Negative (Negative) U Marijuana (THC) Screen Negative (Negative) Point of Care Testing Glucose POC 108 Urine Dip Bedside Urine Glucose Negative Bedside Urine Bilirubin + 1 Bedside Urine Ketone +/- 5 Urine Specific [place] 6.5 Bedside Urine Occult Blood +/- Bedside Urine Protein +/- 15 Bedside Urine Urobilinogen 1+ 2mg Bedside Urine Nitrite - Negative Bedside Urine Leukocytes - Negative Esterase Imaging Data CT scan - head: Radiologist's impression: [address] [address] [address] Scan Report Signed Patient: King McbrideMR#: [id number] : 8Acct:[id number] Age/Sex: 78 / MDate of Service: 03/02/19 Loc: ED Accession Number: [id number] Procedure: CT head/brain wo con Ordering Provider: Shelley Carroll D.O. PROCEDURE: CT HEAD/BRAIN WO CON INDICATIONS: expressive aphasia, improved but intermittent since yesterday TECHNIQUE: Noncontrast 4.5 mm thick angled axial sections acquired from the foramen magnum to the vertex, with coronal and sagittal reformats. For radiation dose reduction, the following was used: automated exposure control, adjustment of mA and/or kV according to patient size. COMPARISON: [facility], CT, CT HEAD/BRAIN WO CON, 03/22/2018, 15:40. [facility], CT, HEAD WITHOUT CONTRAST, 11/03/2017, 16:45. FINDINGS: Image quality: Excellent. CSF spaces: Basal cisterns are patent. No extra-axial fluid collections. The ventricles are symmetric in size and shape. Brain: No intracranial bleeds or masses. There is cerebral volume loss for age, with resultant ventricular and sulcal prominence. There are periventricular and deep white matter chronic small vessel ischemic changes. There is intracranial internal carotid artery atherosclerosis. Skull and face: Calvarium and visualized facial bones appear intact, without suspicious lesions. Sinuses: Visualized sinuses and mastoids are clear. IMPRESSION: Normal for age, source of current expressive aphasia symptoms is not seen. Dictated by: Alexis Mims M.D. on 03/02/2019 at 15:04 Approved by: Alexis Mims M.D. on 03/02/2019 at 15:04 ECG Data Attestation: I personally reviewed and interpreted this ECG as follows: Interpretation: Sinus rhythm with first-degree AV block, marked left axis deviation. Rate 80 P are 235 QRS of 127 QTC of 423. No ST changes appreciated. MDM Narrative Medical decision making narrative: Patient has had is ASA 324 mg, head CT is negative, CTA was pending. If no occlusion plan for admission with patient's intermittent TIA symptoms. Patient would likely benefit for some risk factor modification and further evaluation. Lab shows slightly elevated white count, coags are normal electrolytes do not show any major, patient's electrolytes not show any major lab abnormalities. CTA shows a little bit, 10% stenosis but no other acute findings. I spoke with Dr. Barcenas who accepts has patient has had multiple episodes that are similar to a TIA with stuttering symptoms. Although patient is initially reluctant but then and is agreeable. Does not sound like he has had much evaluation for risk factor modification and would benefit from this. NIH is 0 on exam. Patient has not had any recurrence of symptoms while in the ER. Discharge Plan Departure Patient Disposition: Admitted as Observation Clinical Impression: TIA (transient ischemic attack) Discharge Date/Time: 03/02/19 18:13 Interventions: ED Discharge Assessment Last Done: 03/02/19 18:13 Referrals: Glen Cortes MD [Primary Care Provider] - Admit Date/Time: 03/02/19 17:23 Admit Provider: Roddy Barcenas
[2019-03-02 15:04] LABS: Prothrombin Time 11.9 SECONDS (10.1-12.7)
[2019-03-02 15:06] LABS: PTT Partial Thromboplastin Tim 31 SECONDS (26.4-36.2)
[2019-03-02 15:08] LABS: BUN Creatinine Ratio 15.8 (6-22); Blood Urea Nitrogen 19 mg/dL (9-20); Calcium 8.4 mg/dL (8.4-10.2); Carbon Dioxide 26 mmol/L (22-32); Chloride 103 mmol/L (98-107); Estimated Glomerular Filt Rate 58.3 mL/min (>60); Glucose 112 mg/dL (80-110); HEMOLYSIS 17 (0-50); Potassium 4.3 mmol/L (3.4-5.1); Sodium 138 mmol/L (137-145)
[2019-03-02] MEDS: SODIUM CHLORIDE 0.9% 1,000 ML 150 ML IV (15:13)
--- NOTE | 2019-03-02 15:45 | PC.NURSE ---
Had two episodes of expressive aphasia, both resolved now.
[2019-03-02] MEDS: ACETAMINOPHEN 325 MG TABLET 650 MG PO (16:16)
[2019-03-02 16:31] LABS: Bacteria Urine None Seen
[2019-03-02 16:51] LABS: Urine Amphetamines Negative (Negative); Urine Barbiturates Negative (Negative); Urine Benzodiazepines Negative (Negative); Urine Cocaine Negative (Negative); Urine MDMA Negative (Negative); Urine Methadone Negative (Negative); Urine Methamphetamines Negative (Negative); Urine Morphine/Opi cutoff 2000 Positive (Negative); Urine Oxycodone Negative (Negative); Urine Phencyclidine Negative (Negative); Urine Tetrahydrocannabinol Negative (Negative); Urine Tricyclic Antidepressant Negative (Negative)
[2019-03-02 16:54] LABS: Culture Indicated Urine Cult Not Indicated; RBC Urine 0-1/HPF (0-5/HPF); WBC Urine 0-1/HPF (0-5/HPF)
[2019-03-02] MEDS: SODIUM CHLORIDE 0.9% 1,000 ML 100 ML IV (19:00)
--- NOTE | 2019-03-02 19:10 | DI.ECHO.S_ITS ---
[place] [facility]---------+ [facility] +---------+ : : [address] : : : : [id number] : : : : Phone: [phone] Echocardiogram Report + + :Name: FER ROMANO Study Date: 03/03/2019 Height: 70 in : :[facility] Exam Location: [facility] Weight: 241 lb : : Gender: Male BSA: 2.3 m2 : :: 1940 Age: 78 yrs BP: 164/100 mmHg: :Reason For Study: Aphasia : :Ordering Physician: Kathya : :Hospitalist Performed By: Minoo Page : :Referring: SIENNA VALLES : + + Interpretation Summary The left ventricle is normal in size. The ejection fraction is estimated to be 60-65%. There is no obvious LV thrombus. The right ventricle is normal in size and function. There is mild to moderate mitral regurgitation. Previously, moderate mitral regurgitation. Ao root diam: 4.5 cm asc Aorta Diam: 4.7 cm In September 2013: Ao root diam: 4.3 cm asc Aorta Diam: 4.6 cm The IVC is dilated (diameter is greater than 2.1 cm) and it collapses less than 50% with a sniff. This suggests a high right atrial pressure of 15 mm Hg. Previously right atrial pressure was about 3 mmHg. Mild atherosclerotic plaque(s) in the aortic arch. Procedure: A two-dimensional transthoracic echocardiogram with color flow and Doppler was performed. Comparison is made with the echocardiogram of 10/20/2013. The study quality was technically difficult. The patient was in normal sinus rhythm during the exam. Left Ventricle: The left ventricle is normal in size. Proximal septal thickening is noted. There is no echo evidence for significant left ventricular outflow tract obstruction. There is no thrombus. The ejection fraction is estimated to be 60-65%. There are no focal wall motion abnormalities. Diastolic parameters suggest a relaxation abnormality of the left ventricle, consistent with probable normal filling pressures. Right Ventricle: The right ventricle is normal in size and function. Atria: The left atrium is severely dilated. The left atrium has mildly increased in size since the prior echo exam. The right atrium is mildly dilated. There is no Doppler evidence for an interatrial shunt. Mitral Valve: The mitral valve leaflets are slightly calcified. There is mild to moderate mitral regurgitation. Aortic Valve: The aortic valve is trileaflet. The aortic valve opens well. There is trace aortic regurgitation. Tricuspid Valve: The tricuspid valve is normal in structure and function. There is trace tricuspid regurgitation. Pulmonary artery pressures cannot be estimated because of the lack of a measurable TR jet velocity. Compared to the prior echo exam, there has been a decrease in TR severity. Pulmonic Valve: The pulmonic valve is not well visualized. Great Vessels: The aortic root is mildly dilated. The ascending aorta is moderate-severely enlarged. Mild atherosclerotic plaque(s) in the aortic arch. The pulmonary artery is not well visualized, but is probably normal size. The IVC is dilated (diameter is greater than 2.1 cm) and it collapses less than 50% with a sniff. This suggests a high right atrial pressure of 15 mm Hg. Pericardium/ Pleura There is no pericardial effusion. There is no pleural effusion. MMode/2D Measurements & Calculations LVIDd: 5.8 cm LVOT diam: 2.3 cm LVIDs: 4.1 cm Ao root diam: 4.5 cm FS: 29.3 % asc Aorta Diam: 4.7 cm IVSd: 1.3 cm LVPWd: 0.88 cm LV quinones. diameter/BSA (cm/m^2): 2.6 LV sys. diameter/BSA (cm/m^2): 1.8 LA A2 area: 29.9 cm2 RA long axis: 5.4 cm LA A4 area: 29.1 cm2 RA area: 22.8 cm2 LA length (vol): 5.8 cm RA vol: 82.1 ml LA vol: 127.2 ml RA : 36.3 ml/m2 LA vol index: 56.3 ml/m2 IVC diam: 2.6 cm RVD1 (basal): 4.1 cm RVD2 (mid): 3.4 cm TAPSE: 2.0 cm Doppler Measurements & Calculations Ao V2 max: 119.4 cm/sec LVOT Max Alan: 105.1 cm/sec Ao V2 mean: 78.5 cm/sec LV V1 max P.4 mmHg Ao max P.7 mmHg LV V1 VTI: 23.7 cm Ao mean P.9 mmHg MILES(I,D): 3.6 cm2 Ao V2 VTI: 27.0 cm MILES(V,D): 3.6 cm2 sev ratio: 0.88 MILES indexed to BSA (cm^2/m^2): 1.6 MV E max alan: 58.9 cm/sec PA V2 max: 71.8 cm/sec MV A max alan: 75.6 cm/sec PA V2 mean: 49.4 cm/sec MV E/A: 0.78 PA mean P.1 mmHg Med Peak E' Alan: 4.7 cm/sec PA Accel Time: 0.13 sec E/E' med: 12.4 Lat Peak E' Alan: 5.1 cm/sec E/E' lat: 11.7 E/e' average: 12.0 MV dec time: 0.23 sec SV(LVOT): 96.6 ml Reading Physician:CORBIN
--- NOTE | 2019-03-02 19:26 | P.HP_ITS ---
History of Present Illness Date Patient Seen: 03/02/19 Time Patient Seen: 19:17 Chief complaint: POSSIBLE TIA Narrative: Patient is an 78-year-old patient of Dr. Cortes who presents with acute onset of aphasia. Patient apparently was in the usual state of health until this morning when he developed a headache. No other changes. Shortly thereafter he started having some difficulty with speech. No other symptoms or issues. He went to work at the [employer] course in shortly thereafter it seemed to be getting better. Maybe half an hour. He went home and then drove to a meeting and during that period he had another episode period lasted for approximately our hour and a half. When home took a nap woke up and felt like it was happening again when he presented to the emergency room. Still to the point of when he was admitted he still was having some difficulty and felt like he might still be having trouble although it is hard for him to tell. He feels like he mixes words. He had no visual symptoms. No urinary changes. No bowel function changes no numbness or tingling no weakness. No difficulty functioning in any other way. definitely noticed a change. Brought to the emergency room. Now feels as if pretty much he is back to normal. No other significant changes. Patient had a history of 2018 of having a TIA he was started on aspirin at that time. MRI showed a left vertebral narrowing but no other abnormality. Echo was unremarkable. Patient has been taking 325 of aspirin since that time. Patient does note is that he has had at least 3-4 episodes which last around a half an hour of similar episodes over the last year. No other significant changes or complaints. Past medical history significant for hyperlipidemia is soft Ernst reflux erectile dysfunction sleep apnea, renal lithiasis, chronic cough Past surgical history he has had both hips replaced both shoulders replaced and an appendectomy. Allergies none Family history father at 91 had a CVA at 87, mother with MS. One sister 2 years older healthy. 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 Patient History Medical History (Updated 03/02/19 @ 17:07 by Shelley Carroll DO) GERD (gastroesophageal reflux disease) (Chronic) Insomnia (Chronic) TIA (transient ischemic attack) (Acute) Social History (Updated 03/02/19 @ 14:50 by Shelley C Mank, DO) Smoking Status: Never smoker alcohol intake: current substance use type: does not use Family & Social History Safety & Behavioral: Feels Safe in Current Yes Environment Been Physically Hurt or No Threatened By a Person Tobacco & Substance use: Smoking Status Never smoker alcohol intake current alcohol intake frequency 0-2 drinks per day Substance Use Type does not use Meds Home Medications Medication Instructions Recorded Confirmed Type aspirin 81 mg PO DAILY #0 11/03/17 03/02/19 History hydrocodone-chlorpheniramine 5 ml PO Q12H PRN 03/02/19 03/02/19 History meloxicam 15 mg PO DAILY PRN 03/02/19 03/02/19 History multivitamin 1 tab PO DAILY 03/02/19 03/02/19 History omeprazole 20 mg PO DAILY 03/02/19 03/02/19 History sildenafil (antihypertensive) 40 - 100 mg PO PRN PRN 03/02/19 03/02/19 History Allergies Allergy/AdvReac Type Severity Reaction Status Date / Time No Known Drug Allergies Allergy Verified 03/02/19 14:45 Review of Systems Review of Systems All systems reviewed & are unremarkable except as noted in HPI and below Exam Vital Signs (past 8 hours): - 03/02/19 14:35 03/02/19 14:45 03/02/19 15:00 Temperature 98.6 F Pulse Rate 84 77 76 Respiratory Rate 18 17 11 L Blood Pressure 142/95 H Blood Pressure [Right Arm] 148/98 H 108/94 H Pulse Oximetry 96 93 94 03/02/19 15:30 03/02/19 16:00 03/02/19 16:30 Temperature Pulse Rate 77 71 65 Respiratory Rate 19 18 13 Blood Pressure Blood Pressure [Right Arm] 148/95 H 146/103 H 166/105 H Pulse Oximetry 95 98 96 03/02/19 17:00 03/02/19 17:30 03/02/19 18:05 Temperature 98.0 F Pulse Rate 64 65 66 Respiratory Rate 15 16 20 Blood Pressure 138/107 H Blood Pressure [Right Arm] 189/101 H 172/115 H Pulse Oximetry 97 99 97 Oxygen Delivery Method Room Air Oxygen Flow Rate 0 Narrative Exam Narrative: Alert male interactive appropriate smiling no acute distress. Tympanic membranes are normal pupils are equal response to light EOMIs intact posterior pharynx is normal no oral lesions no tongue lesions neck is supple without adenopathy JVD or bruits lungs are clear. Heart regular rate and rhythm with no murmurs clicks rubs or gallops. Abdomen is soft positive bowel sounds no bruits. Extremities without cyanosis clubbing edema. Pulses are normal. Neurologic exam shows cranial nerves 2-12 were intact motor is 5/5 reflexes 1+ and symmetric. [id number] is normal though slight tremor in the left hand. [id number]-[id number] is normal. Did not ambulate. Appears to be alert and oriented. Psychologically smiling interactive happy Objective Labs Result Diagrams: 03/02/19 14:36 03/02/19 14:36 Labs: Laboratory Results - last 24 hr 03/02/19 03/02/19 03/02/19 14:36 14:36 14:36 WBC 12.5 H RBC 5.13 Hgb 15.9 Hct 46.3 MCV 90.3 MCH 30.9 MCHC 34.3 RDW 12.7 Plt Count 217 Neut % (Auto) 70.4 Lymph % (Auto) 19.3 L [place] % (Auto) 8.0 Eos % (Auto) 1.6 L Baso % (Auto) 0.7 Neut # (Auto) 8800 H Lymph # (Auto) 2400 [place] # (Auto) 1000 H Eos # (Auto) 200 Baso # (Auto) 100 PT 11.9 INR 1.0 APTT 31 Sodium 138 Potassium 4.3 Chloride 103 Carbon Dioxide 26 BUN 19 Creatinine 1.20 Estimated GFR 58.3 L BUN/Creatinine Ratio 15.8 Glucose 112 H Calcium 8.4 Urine RBC Urine WBC Urine Bacteria Ur Culture Indicated? Urine Opiates Screen Ur Oxycodone Screen Urine Methadone Screen Ur Barbiturates Screen U Tricyclic Antidepress Ur Phencyclidine Scrn Ur Amphetamines Screen U Methamphetamines Scrn Ur MDMA Scrn (Ecstasy) U Benzodiazepines Scrn Urine Cocaine Screen U Marijuana (THC) Screen 03/02/19 03/02/19 16:15 16:15 WBC RBC Hgb Hct MCV MCH MCHC RDW Plt Count Neut % (Auto) Lymph % (Auto) [place] % (Auto) Eos % (Auto) Baso % (Auto) Neut # (Auto) Lymph # (Auto) [place] # (Auto) Eos # (Auto) Baso # (Auto) PT INR APTT Sodium Potassium Chloride Carbon Dioxide BUN Creatinine Estimated GFR BUN/Creatinine Ratio Glucose Calcium Urine RBC 0-1/hpf Urine WBC 0-1/hpf Urine Bacteria None seen Ur Culture Indicated? Cult not indicated Urine Opiates Screen Positive H Ur Oxycodone Screen Negative Urine Methadone Screen Negative Ur Barbiturates Screen Negative U Tricyclic Antidepress Negative Ur Phencyclidine Scrn Negative Ur Amphetamines Screen Negative U Methamphetamines Scrn Negative Ur MDMA Scrn (Ecstasy) Negative U Benzodiazepines Scrn Negative Urine Cocaine Screen Negative U Marijuana (THC) Screen Negative Assessment & Plan Assessment & Plan narrative: TIA/stroke. Does have some residual word-finding issues and not sure if that is baseline or not. We will see what the MRI shows tomorrow. Will obtain echo. Will begin on Plavix and will begin atorvastatin. Reasoning discussed. He understands. No other questions. Neuro checks and tele. Patient will call if any change. PT OT speech therapy evaluation. Hyperlipidemia. 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 Soft GI reflux. Vieira probe was all Chronic cough will hold off on his regular medicine. DJD. Will hold off on his anti-inflammatory for now. BPH stable will follow. Code status. We discussed code status he has been DNR in the past but would like to be resuscitated at this time. Will have him continue to discuss with his usual doctor. Disposition. Anticipate 48 hours before we can make full decisions. We will see what the MRI shows and how he is doing. He understands questions answered
[2019-03-02] MEDS: ATORVASTATIN 20 MG TABLET PO (20:32)
[2019-03-02] MEDS: CLOPIDOGREL 75 MG TABLET 300 MG PO (20:43)
[2019-03-03] VITALS (12 sets, daily range): BP systolic 139–184; BP diastolic 84–112; PULSE 53–71; RESP 16–19; TEMP 36.3–36.7; O2SAT 92–97
[2019-03-03] MEDS: SODIUM CHLORIDE 0.9% 1,000 ML 100 ML IV (00:18)
--- NOTE | 2019-03-03 01:06 | PC.NURSE ---
Addendum entered by Bhargavi Bedolla R.N. 03/03/19 06:29: Slept at intervals. Last BP was 157/92. No further aphasia/expressive aphasia noted. Refused a.m. Protonix stating he takes his Omeprazole at night. Addendum entered by Bhargavi Bedolla R.N. 03/03/19 02:00: [id number] Rechecked BP after being back in bed for 15 minutes and BP now 139/84 Addendum entered by Bhargavi Bedolla R.N. 03/03/19 01:10: NIH was 0 on assessment. Original Note: Patient is alert and oriented. Breath sounds diminished but CTA with RA sat of 95%. HRR; on telemetry with 0000 reading of SB (rate 54) with 1st degree AVB & BBB. BP elevated at 165/110 on right arm and 157/103 on left arm. Has been consistently elevated since admission and was indicated as such in MD h&p. Denies nausea. BT present and abdomen is soft. States he has urinary urgency but denies dysuria or incontinence. Refused to use urinal on previous shift and again when up to bathroom with this RN so measuring device placed in toilet in order to try and get more accurate output. He is independent with bed mobility and up to bathroom with SBA. Is impulsive and not calling staff for assistance so bed alarm is activated since fall risk score is moderate. Denies pain.
--- NOTE | 2019-03-03 08:07 | P.PN_ITS ---
Subjective Date Patient Seen: 03/03/19 Time Patient Seen: 08:07 Interval history: 78 year old gentleman is seen this morning after being admitted last night for TIA with expressive aphasia, hospital day 1. He is awaiting MRI and echo today. ABCD2 equal to 5, he was administered Plavix 300 mg p.o. x1 in the ED, has not started daily Plavix or aspirin yet. Nursing reports that he is ambulating well, participating fully in physical therapy. Oral intake is excellent and patient would like to reduce his IV fluids because he was up all night urinating or discontinue his IV entirely. Patient reports that he is back to his baseline and is not having any more speech deficits. Denies any neurological or sensory deficits. No weakness. Exam Vital Signs (past 8 hours): - 03/03/19 00:26 03/03/19 00:41 03/03/19 01:19 Temperature 97.9 F Pulse Rate 61 62 54 L Respiratory Rate 18 Blood Pressure 157/103 H 165/110 H 139/84 Pulse Oximetry 95 03/03/19 04:26 Temperature 97.6 F Pulse Rate 53 L Respiratory Rate 18 Blood Pressure 157/92 H Pulse Oximetry 95 Oxygen Delivery Method Room Air Oxygen Flow Rate 0 Narrative Exam Narrative: General: Alert and oriented male, appears stated age, no acute distress. HEENT: Head normocephalic/atraumatic. Lungs: Clear to auscultation bilaterally, no wheezes rhonchi or rales. CV: Normal S1 and S2 with regular rate and rhythm, no audible murmurs rubs or gallops. Abdomen: Soft, nontender, nondistended, positive bowel sounds, no organomegaly. Extremities: No clubbing, cyanosis, or edema. Pulses: 2+ and symmetric. Neuro: Cranial nerves 2-12 grossly intact, no focal deficits. Speech is aphasic. Strength 5/5 throughout. Objective Labs Result Diagrams: 03/02/19 14:36 03/02/19 14:36 Labs: Laboratory Results - last 24 hr 03/02/19 03/02/19 03/02/19 14:36 14:36 14:36 WBC 12.5 H RBC 5.13 Hgb 15.9 Hct 46.3 MCV 90.3 MCH 30.9 MCHC 34.3 RDW 12.7 Plt Count 217 Neut % (Auto) 70.4 Lymph % (Auto) 19.3 L [place] % (Auto) 8.0 Eos % (Auto) 1.6 L Baso % (Auto) 0.7 Neut # (Auto) 8800 H Lymph # (Auto) 2400 [place] # (Auto) 1000 H Eos # (Auto) 200 Baso # (Auto) 100 PT 11.9 INR 1.0 APTT 31 Sodium 138 Potassium 4.3 Chloride 103 Carbon Dioxide 26 BUN 19 Creatinine 1.20 Estimated GFR 58.3 L BUN/Creatinine Ratio 15.8 Glucose 112 H Calcium 8.4 Urine RBC Urine WBC Urine Bacteria Ur Culture Indicated? Urine Opiates Screen Ur Oxycodone Screen Urine Methadone Screen Ur Barbiturates Screen U Tricyclic Antidepress Ur Phencyclidine Scrn Ur Amphetamines Screen U Methamphetamines Scrn Ur MDMA Scrn (Ecstasy) U Benzodiazepines Scrn Urine Cocaine Screen U Marijuana (THC) Screen 03/02/19 03/02/19 16:15 16:15 WBC RBC Hgb Hct MCV MCH MCHC RDW Plt Count Neut % (Auto) Lymph % (Auto) [place] % (Auto) Eos % (Auto) Baso % (Auto) Neut # (Auto) Lymph # (Auto) [place] # (Auto) Eos # (Auto) Baso # (Auto) PT INR APTT Sodium Potassium Chloride Carbon Dioxide BUN Creatinine Estimated GFR BUN/Creatinine Ratio Glucose Calcium Urine RBC 0-1/hpf Urine WBC 0-1/hpf Urine Bacteria None seen Ur Culture Indicated? Cult not indicated Urine Opiates Screen Positive H Ur Oxycodone Screen Negative Urine Methadone Screen Negative Ur Barbiturates Screen Negative U Tricyclic Antidepress Negative Ur Phencyclidine Scrn Negative Ur Amphetamines Screen Negative U Methamphetamines Scrn Negative Ur MDMA Scrn (Ecstasy) Negative U Benzodiazepines Scrn Negative Urine Cocaine Screen Negative U Marijuana (THC) Screen Negative Assessment & Plan Assessment & Plan narrative: 1. TIA with expressive aphasia, resolving. -Awaiting MRI and echo today to complete workup. Allowing permissive hypertension until large artery occlusion ruled out with MRI. -ABCD2 score 5, will start dual anti-platelet therapy with Plavix 75 mg p.o. q.day and aspirin 162 mg p.o. q.day. Plavix to be continued for 21 days with outpatient evaluation thereafter. -Continue atorvastatin 20 mg p.o. q.h.s. for secondary prevention, patient does have hyperlipidemia. -Continue PT/OT/ST. -Patient does not have up-to-date A1c, will check for possible secondary prevention benefit. 2. Hyperlipidemia, as above. 3. GERD, continue Protonix. 4. Degenerative joint disease, chronic, holding meloxicam secondary to bleeding risk while on Plavix and aspirin. 5. BPH, stable, holding sildenafil. 6. Leukocytosis, mild, no clinical signs of infection, unlikely etiology for TIA. Will trend CBC in the morning. 7. DVT prophylaxis, patient is ambulating well, participating in physical therapy, will hold Lovenox secondary to bleeding risk with Plavix and aspirin and use SCDs instead.
--- NOTE | 2019-03-03 08:08 | PC.NURSE ---
Addendum entered by Melba Porter R.N. 03/03/19 13:33: Spoke with Dr Noguera and let her know MRI and ECHO have both been done. She will be up to see him and go over results after clinic hours- patient and updated regarding the same. Addendum entered by Melba Porter R.N. 03/03/19 10:57: Just got back from his MRI, ECHO being done at this time. Addendum entered by Melba Porter R.N. 03/03/19 10:13: Spoke with Dr Rush (patient said she told him she was going to saline lock his IV but there was no order to that effect), received order to saline lock IV. Addendum entered by Melba Porter R.N. 03/03/19 09:42: NESTOR hose placed to BLE's per new order. Addendum entered by Melba Porter R.N. 03/03/19 09:28: Patient was cleared by PT to be independent with mobility. This health science writer requested that he call for SBA to BR while he's still hooked up to the IV pole and he has agreed to do that. Addendum entered by Melba Porter R.N. 03/03/19 08:40: This health science writer spoke with Dr Rush, let her know that patient would like his IV fluids stopped if possible (r/t urinary frequency). Also, mentioned to MD that Plavix does not appear to have been ordered but the prog. note says it is/should be. Anticipate any new orders after she actually rounds on him. Patient walking in halls with PT at this time. Original Note: Shift summary: Awake and alert, oriented X3. NIH score 0. No expressive aphasia observed and patient denies any trouble with speech or word-finding. Tele monitoring ongoing, HR in the 50's, patient is asymptomatic. Lungs CTA, HRR. Denies pain or discomfort. C/O having to void frequently and is asking to have IV fluids dc'd- understands we have to wait and ask the doctor. Tolerating PO fluids without issue. MRI planned for this morning, has ECHO ordered as well. Able to make needs known and calls appropriately. SBA to BR, steady on feet. Light in reach, bed alarm on.
[2019-03-03] MEDS: SODIUM CHLORIDE 0.9% 1,000 ML 25 ML IV (08:58)
[2019-03-03] MEDS: ASPIRIN EC 81 MG TABLET 162 MG PO (08:58)
[2019-03-03] MEDS: CLOPIDOGREL 75 MG TABLET PO (08:58)
--- NOTE | 2019-03-03 09:06 | PT.IIE ---
Medical History (Last Updated 03/02/19 @ 14:49 by Shelley Carroll DO) GERD (gastroesophageal reflux disease) (Chronic) Insomnia (Chronic) TIA (transient ischemic attack) (Acute) Physical Therapy Inpatient Evaluation/Re-Eval M1 PT/OT-IP Prior Functional Status Start: 03/03/19 08:51 Freq: NEEDED Status: Active Protocol: Document 03/03/19 08:52 [facility] (Rec: 03/03/19 09:06 [facility] [id number]) Medical Review Prior Functional Status Medical History Reviewed Yes Communication WNL; KLETSEL DEHE WINTUN Mobility and Gait Indep w/o AD Activities of Daily Living and IADL's Indep and participates in cooking and cleaning Prior Functional Level (Other details) Pt walks his dogs 1/3 mile mult times a day and golfs Social History Household Members spouse Living Arrangements House Number of Floors (Floors) One Floor Number of Stairs To Enter/Railing? no CLAUDETTE Home Environment High Toilet Walk in Shower Employment Status Retired M2 PT-IP Current Condition Start: 03/03/19 08:51 Freq: NEEDED Status: Active Protocol: Document 03/03/19 08:52 [facility] (Rec: 03/03/19 09:06 [facility] [id number]) Physical Therapy Current Condition Current Condition Evaluation Date 03/03/19 Treatment Diagnosis TIA M3 PT-IP Subjective Start: 03/03/19 08:51 Freq: NEEDED Status: Active Protocol: Document 03/03/19 08:52 [facility] (Rec: 03/03/19 09:06 [facility] [id number]) Subjective Physical Therapy Visit Type Type Initial Evaluation Visit Start Time 08:25 Visit Stop Time 08:45 Total Visit Minutes 20 Number of SUPERVISOR DITCHING Visits 0 Physical Therapy Visit Comments Patient Comments Pt wants to go home Therapy Pain Assessment Pain Present Pain Present Denied Pain M4 PT-IP Mobility and Gait Start: 03/03/19 08:51 Freq: NEEDED Status: Active Protocol: Document 03/03/19 08:52 [facility] (Rec: 03/03/19 09:06 [facility] [id number]) PT-Bed Mobility Assessment Supine to Sit Supine to Sit Independent Head of Bed Elevated Sit to Supine Sit to Supine Independent Head of Bed Elevated Scooting Scooting to Edge of Bed Independent Scooting Up and Down in Bed Independent PT-Transfer Assessment Sit to and From Stand Sit to and from Stand Independent Equipment Transfer Assistive Device Gait Belt Comments Mobility Comments Pt stood from chair & from bedside without UE Gait Assessment Gait Gait Assistance Required: Standby Assistance Distance (Feet) 200 Assistive Devices Assistive Device Gait Belt Gait Deviations General Gait Pattern Within Normal Limits Comments Gait Comments Pt amb within normal limits and had no LOB without AD PT-Balance Assessment Sitting Balance and Reactions Static Sitting Balance Ability Normal Dynamic Sitting Balance Ability Normal Standing Balance and Reactions Static Standing Balance Ability Normal Dynamic Standing Balance Ability Normal Device Used none Balance Tests Beckford Balance Test Score 53/56 Query Text:Score Functional Assessments Functional Tests Tinetti Balance and Gait Assessment M5 PT-IP Objective Assessments Start: 03/03/19 08:51 Freq: NEEDED Status: Active Protocol: Document 03/03/19 08:52 [facility] (Rec: 03/03/19 09:06 [facility] [id number]) Orientation Orientation/Cognition Level of Alertness Alert Safety Awareness Understands Safety Issues Gross Range of Motion Upper Extremity ROM Assessment Within Functional Limits Lower Extremity ROM Assessment Within Functional Limits Strength Upper Extremity Strength Assessment Within Functional Limits Lower Extremity Strength Assessment Within Functional Limits M7 PT-IP Assessment and Plan Start: 03/03/19 08:51 Freq: NEEDED Status: Active Protocol: Document 03/03/19 08:52 [facility] (Rec: 03/03/19 09:06 [facility] [id number]) PT Summary Assessment and Plan Potential Rehabilitation Potential Excellent Status of Condition at Evaluation Stable Summary Assessment Summary Pt was safe with ambulation and balance tests showing no sign for imbalance and low risk of falls based on tinnetti and BECKFORD scoring. Pt is d/c from PT and no need for OT to see patient. Pt was finishing indep toileting when PT arrived and pt was able to don/doff socks indep and bend over as would be needed for donning/doffing pants without issue. No concern of ability to shower or do other ADLs. Frequency of Treatment Frequency Of Treatment Discharge Recommendations To Nursing Amount of Assist Needed Independent Discharge Recommendations PT Discharge Recommendations Home
--- NOTE | 2019-03-03 11:10 | ST.IPIE ---
Care Team Visit Care Team Role Provider Type Glen Cortes MD Family Provider Physician Primary Care Provider Specialty: Family Practice Address: [facility] [place], [address] Email: [email or web address] Shelely Carroll DO Emergency Provider Physician Specialty: Emergency Medicine Address: [address] [place] [address], [id number] Email: Roddy Barcenas MD Admit Provider Physician Attending Provider Specialty: [facility] Practice Address: [facility] [place], [address] Email: [email or web address] Past Medical History (Last Updated 03/02/19 @ 14:49 by Shelley Carroll DO) GERD (gastroesophageal reflux disease) (Chronic Medical) Insomnia (Chronic Medical) TIA (transient ischemic attack) (Acute Medical) ST IP Initial Evaulation Report BEHAVIORAL HEALTH THERAPIST Language Evaluation Start: 03/03/19 10:50 Freq: Status: Active Protocol: Document 03/03/19 10:52 [facility] (Rec: 03/03/19 11:07 [facility] [email or web address]) Language Evaluation Session Time Visit Start Time 08:40 Visit Stop Time 09:00 Total Visit Minutes 20 Visit Information Visit Number Initial Evaluation Next Note Type Next Note Type Treatment Note Referral Referring Physician Roddy Barcenas Reason for Referral TIA, expressive aphasia Language Evaluation Assessment Type Speech-Language, Swallow Screen Past Medical History Patient History 78-yr-old male with hx of TIAs presented to ED following intermittent episodes of expressive aphasia over ~24 hrs. In ED, pt reported feeling pretty much back to normal. CT head was normal. No aneurysm or dissection was found via head/neck CTA. Previous Therapy Previous Speech-Language Therapy No Oral Motor Examination Oral Motor Exam Completed Yes Results Symmetrical features. Limited elevation of soft palate upon phonation. Otherwise oral structures were WNL of strength, coordination and ROM . Hyloaryngeal elevation and excursion WNL via palpation. Pt produced diadochokinetic tasks WNL. Subjective Subjective The pt was awake in bed watching TV. He reported no difficulty with swallowing and stated he felt he was back to normal. - Informal Assessment Receptive Language Normal Yes Expressive Language Normal Yes Articulation Normal Yes Assessment Findings Pt passed swallow screen including trials of dry cracker and water from cup in single and consecutive sips with no overt s/sx of aspiration. He participated in conversation of moderate complexity over span of ~15 min with clear articulation ( 100% intelligible) and appropriate language, syntax, responses to yes/no and open- ended questions and comments. He was oriented x4. Evaluation discontinued upon arrival of MD. Pt appears to be functioning WNL and back to baseline. Recommendations Speech Pathology to follow up with pt x1 over hospital stay for ongoing assessment. Recommend regular texture and thin liquid diet. - Receptive Language - Expressive Language - Treatment Goals Short Term Goals Ongoing assessment, pt/family education. Half-Way Goals Pt will produce speech and language skills WNL to participate in conversations and decisions related to his medical care. Pt will safely tolerate regular texture and thin liquids to meet his nutrition and hydraion needs.
--- NOTE | 2019-03-03 14:23 | CM.DANOTE ---
Discharge Planning/Care Management DCP: assessment: case received, EMR reviewed and met now with pt. Introduced self and role. Pt is an 78 year old male who admitted last evening to care of the hospitalist team. Payer: Medicare and [facility] Medical Admission status: OBS: confirmed by UR KENIA Hubbard PCP: has been Dr. Cortes who just retired: pt and his are both establishing with Dr. Noguera at the same clinic. Dr. Noguera saw pt today and pt says she is coming back after clinic and he very much hopes he will be ok'd for home. Pt admitted with s/s of dysphasia. He says he knew what he wished to say but could not find the words. He noted he had this same experienc a few years ago. Pt did see MMD UNIT TEACHER today. He says as far as he is concerned he is back to normal. PT did see pt and deemed him safe and independent, at baseline. Pt has been up independently in his room. Golfs frequently and walks his dog many times a day. MRI was completed and Dr. Noguera will be here later to discuss results and make decision re d/c. P: home when ok'd for same. CM Discharge Assessment Start: 03/03/19 14:22 Freq: Status: Active Protocol: Document 03/03/19 14:22 ITV (Rec: 03/03/19 14:23 [email or web address] [id number]) Discharge Planning Assessment Advance Directives? Yes History Provided By Patient Medical Record Prior Living Arrangements House Household Members spouse Type of transporation used prior to Drives own vehicle admit Independent with ADL's Yes Is patient alert and oriented? Yes Whiteboard Updated in Patient Room with Yes name and ext. 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
--- NOTE | 2019-03-03 16:00 | OT.IP.TRT ---
Occupational Therapy Treatment Note M3 OT- IP Subjective and Pain Start: 03/03/19 16:00 Freq: Status: Active Protocol: Document 03/03/19 16:00 MOY (Rec: 03/03/19 16:04 [email or web address] [id number]) OT- Subjective Occupational Therapy Visit Type Type Administrative Note Visit Start Time 16:00 Notes OT referral received on this 78 yr old pt admitted with 2 episodes of expressive aphasia; now resolved. Head CT and MRI negative for acute changes. Pt has previous hx of similar TIA's. Per discussion with P.T., pt is back to baseline. He is independent with all mobility and self care skills in room without a device. No focal deficits found. No OT services needed for this admission. No charge.
--- NOTE | 2019-03-03 19:08 | DI.MRI.S_ITS ---
PROCEDURE: MR STROKE Pre- and post-contrast brain MRI, non-contrast brain MR angiogram, pre- and postcontrast neck MR angiogram INDICATIONS: aphasia TECHNIQUE: Brain: Noncontrast axial T1 spin echo, axial T2 fast spin echo, sagittal and axial FLAIR, coronal T2 fast spin echo, axial gradient echo, axial diffusion and ADC through the brain. After the administration of contrast, axial 3D VIBE of the cranial vasculature and brain. Brain MRA: Non-contrast 3-D time of flight MR angiogram, with multiple vbtgpop-nxlsjpdat-xwvpqnkqtm (MIP) reformats performed. Neck MRA: Axial and sagittal TruFISP through the neck. Coronal dynamic MR angiogram during administration of contrast in the arterial and venous phases, with 3-dimenstional vvikrrw-kqfnbuied-moohgroven (MIP) reformats constructed from subtraction images. COMPARISON: [facility], CT, CT ANGIO HEAD AND NECK, 03/02/2019, 15:26. [facility], MR, MR STROKE, 04/07/2018, 7:51. FINDINGS: Image quality: Excellent. BRAIN: CSF spaces: Ventricles are normal in size and shape. Basal cisterns are patent. No extra-axial fluid collections. Brain: No intracranial bleeds or mass effects. Moderate diffuse cerebral volume loss. Mild degree of patchy high FLAIR signal within the periventricular and subcortical white matter. Mcgraw-white matter interface is normal. Diffusion weighted images show no acute ischemic insults. Brainstem appears normal. Normal intravascular flow voids are present. No abnormal intracranial enhancement. Skull and face: Calvarial marrow signal is normal. Orbits appear normal. 22 mm diameter high T2 intensity focus within the right posterior nasopharynx. Sinuses: Sinuses and mastoids are clear. BRAIN MR ANGIOGRAM: Anterior circulation: Intracranial internal carotid arteries are normal in size and enhancement. The flow within the paired anterior cerebral arteries is normal and symmetric. The mild multifocal stenoses within the bilateral M1 segments of the middle cervical arteries.The anterior communicating artery is seen. No aneurysm nor occlusion. Posterior circulation: The visualized portions of the vertebral arteries demonstrate normal caliber. Mild multifocal stenoses within the proximal/mid basal artery. The flow within the posterior cerebral arteries is normal and symmetric. No aneurysm nor occlusion. NECK MR ANGIOGRAM: Proximal great vessels not well-seen secondary to artifact. Conventional branching anatomy of the thoracic aortic arch. Innominate artery is grossly patent. Right subclavian arteries grossly patent. Right vertebral artery demonstrates a high grade origin stenosis, and is otherwise patent. Right common carotid artery is grossly patent as visualized. Right internal carotid artery is tortuous and patent. Right external carotid artery is patent. Left common carotid artery not well-seen but grossly patent as visualized. Left internal carotid artery is tortuous and demonstrates mild, roughly 30% stenosis proximally. Left external carotid artery is patent. Left subclavian artery demonstrates a high grade web like stenosis proximal to the left vertebral artery origin.. Left vertebral artery patent. Modeling And Simulation Analyst T2 imaging through the neck is grossly unremarkable. IMPRESSION: BRAIN MRI: 1. No acute process. No recent infarct. 2. Volume loss and small vessel ischemic disease. 3. 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 BRAIN MR ANGIOGRAM: 1. Mild anterior and posterior circulation stenoses as above. No acute process. NECK MR ANGIOGRAM: 1. No right internal carotid artery stenosis. Mild left internal carotid artery stenosis. 2. High-grade right vertebral artery origin stenosis. Patent left vertebral artery. 3. High-grade left proximal subclavian artery stenosis. Dictated by: Piyush Celeste M.D. on 03/03/2019 at 10:53 Approved by: Piyush Celeste M.D. on 03/03/2019 at 11:04
[2019-03-03] MEDS: PANTOPRAZOLE 20 MG TABLET PO (21:23)
[2019-03-03] MEDS: ATORVASTATIN 20 MG TABLET PO (21:23)
[2019-03-04] VITALS: O2SAT 97
[2019-03-04 04:20] VITALS: BP 160/96; PULSE 61; RESP 18; TEMP 36.7; O2SAT 96
[2019-03-04 06:00] LABS: Add Manual Diff / Slide Review NO; Basophils Absolute Auto 0 /uL (0-100); Basophils Percent Auto 0.6 % (0-2); Eosinophils Absolute Auto 400 /uL (0-450); Eosinophils Percent Auto 5.7 % (2-4); Hematocrit 42.6 % (41-53); Hemoglobin 14.8 g/dL (13.5-17.5); Lymphocytes Absolute Auto 2100 /uL (1100-4500); Lymphocytes Percent Auto 27.9 % (25-40); Mean Corpuscular HGB Conc 34.8 % (30-36); Mean Corpuscular Hemoglobin 31.3 PG (26-34); Monocytes Absolute Auto 800 /uL (0-900); Monocytes Percent Auto 10.4 % (3-14); Neutrophils Absolute Auto 4200 /uL (1500-7000); Neutrophils Percent Auto 55.4 % (50-75); Platelet Count 179 X10^3/uL (150-400); Red Blood Cell Count 4.73 X10^6/uL (4.5-5.9); Red Cell Distribution Width 12.6 % (11.6-14.8); White Blood Cell Count 7.6 X10^3/uL (4.5-11.0)
--- NOTE | 2019-03-04 06:14 | PC.NURSE ---
NOC Shift: Stable throughout shift, no S/S of TIA's. Pt NIH 0. Denies pain, discomfort. Ambulates independently w/SBA to and from bathroom no difficultines noted. Continues to have hypertension otherwise stable. Possible discharge to home today.
[2019-03-04 07:30] VITALS: BP 162/87; PULSE 75; RESP 18; TEMP 36.7; O2SAT 98
[2019-03-04 07:37] VITALS: BP 143/82; PULSE 74
--- NOTE | 2019-03-04 08:06 | P.DS_ITS ---
History of Present Illness Date Patient Seen: 03/04/19 Time Patient Seen: 08:04 Chief complaint: POSSIBLE TIA Narrative: Please see admission H&P. Discharge Providers Date of admission: 03/02/19 17:23 Discharge Date: 03/04/19 Primary care physician: Krissy Noguera MD Consults: 03/02/19 19:08 Consult to Discharge Planning Routine Comment: Consult to Occupational Therapy Evaluate & Treat Comment: Physician Instructions: Evaluate and treat Consult to Physical Therapy Evaluate & Treat Comment: Physician Instructions: Evaluate and Treat Consult to Speech Therapy Evaluate & Treat Comment: Physician Instructions: Evaluate and treat Discharge provider: Krissy Noguera MD Summary Discharge Diagnosis: 1. TIA with expressive aphasia, resolved 2. Hyperlipidemia 3. Essential hypertension, improving 4. GERD 5. Degenerative joint disease 6. BPH 7. Leukocytosis, resolved Hospital Course: Patient's expressive aphasia quickly resolved after admission. Secondary to high risk of stroke with ABCD2 score of 5, patient was held for observation while echo and MRA completed to rule out large vessel disease or structural cardiac disease versus thrombus. Echo showed no etiology for thro mbus and ejection fraction was noted to be over 60-65%. Brain and neck MRI on hospital day 1 showed the following: BRAIN MRI: 1. No acute process. No recent infarct. 2. Volume loss and small vessel ischemic disease. 3. 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 BRAIN MR ANGIOGRAM: 1. Mild anterior and posterior circulation stenoses as above. No acute process. NECK MR ANGIOGRAM: 1. No right internal carotid artery stenosis. Mild left internal carotid artery stenosis. 2. High-grade right vertebral artery origin stenosis. Patent left vertebral artery. 3. High-grade left proximal subclavian artery stenosis. Permissive hypertension was allowed throughout hospital stay, on day of dis charge, blood pressure is 143/82. Maximum blood pressure, 182/109, average blood pressure 150-180/90-110. New medications started in the hospital include aspirin 162 mg p.o. q.day, Plavix 75 mg p.o. q.day. Plavix will be continued for a 21 day course, aspirin thereafter. Will hold meloxicam during this period. Patient was also started on atorvastatin 20 mg p.o. q.h.s. for secondary prevention of stroke and will be discharged on lisinopril 10 mg p.o. q.day for the same reason. His blood p ressures will be followed closely in the outpatient setting. A1c is still pending, possible need for glycemic control. Outpatient consult with vascular surgery will be arranged to discuss the severe stenosis in his right vertebral artery and left subclavian artery. Patient education provided regarding importance of lifestyle modification for stroke prevention including a low cholesterol/low salt diet, exercise 30 minutes most days of the week, continue tobacco cessation, and medications as noted above. Advised to return promptly for care with any signs/symptoms of TIA/stroke including dizziness, headache, weakness, numbness, change in speech, or any other concerns. He demonstrated understanding and agreement with treatment plan. Questions answered. Time spent on discharge and coordination of post hospital care: 30 minutes. Status at Discharge Cognitive/behavioral status at discharge: at baseline, oriented Functional status at discharge: independent ambulation Overall status at discharge: patient is back to baseline Time Spent with Patient Greater than 30 minutes Exam Vital Signs (past 8 hours): - 03/04/19 04:20 03/04/19 07:30 03/04/19 07:37 Temperature 98.1 F 98.1 F Pulse Rate 61 75 74 Respiratory Rate 18 18 Blood Pressure 160/96 H 162/87 H 143/82 H Pulse Oximetry 96 98 Oxygen Delivery Method Room Air Oxygen Flow Rate 0 Narrative Exam Narrative: [address] [id number] Progress Note Patient: King Mcbride#: [id number] : 8Acct:[id number] Age/Sex: 78 / M Date of Service: 03/02/19 Provider: Krissy Noguera MD Subjective Date Patient Seen: 03/03/19 Time Patient Seen: 08:07 Interval history: 78 year old gentleman is seen this morning after being admitted last night for TIA with expressive aphasia, hospital day 1. He is awaiting MRI and echo today. ABCD2 equal to 5, he was administered Plavix 300 mg p.o. x1 in the ED, has not started daily Plavix or aspirin yet. Nursing reports that he is ambulating well, participating fully in physical therapy. Oral intake is excellent and patient would like to reduce his IV fluids because he was up all night urinating or discontinue his IV entirely. Patient reports that he is back to his baseline and is not having any more speech deficits. Denies any neurological or sensory deficits. No weakness. Exam Vital Signs (past 8 hours): - 03/03/19 00:26 03/03/19 00:41 03/03/19 01:19 Temperature 97.9 F Pulse Rate 61 62 54 L Respiratory Rate 18 Blood Pressure 157/103 H 165/110 H 139/84 Pulse Oximetry 95 03/03/19 04:26 Temperature 97.6 F Pulse Rate 53 L Respiratory Rate 18 Blood Pressure 157/92 H Pulse Oximetry 95 Oxygen Delivery Method Room Air Oxygen Flow Rate 0 Narrative General: Alert and oriented male, appears stated age, no acute distress. HEENT: Head normocephalic/atraumatic. Lungs: Clear to auscultation bilaterally, no wheezes rhonchi or rales. CV: Normal S1 and S2 with regular rate and rhythm, no audible murmurs rubs or gallops. Abdomen: Soft, nontender, nondistended, positive bowel sounds, no organomegaly. Extremities: No clubbing, cyanosis, or edema. Pulses: 2+ and symmetric. Neuro: Cranial nerves 2-12 grossly intact, no focal deficits. Speech is aphasic. Strength 5/5 throughout. Objective Labs Result Diagrams: 03/04/19 05:20 03/02/19 14:36 Labs: Laboratory Results - last 24 hr 03/04/19 05:20 WBC 7.6 RBC 4.73 Hgb 14.8 Hct 42.6 MCV 90.0 MCH 31.3 MCHC 34.8 RDW 12.6 Plt Count 179 Neut % (Auto) 55.4 Lymph % (Auto) 27.9 [place] % (Auto) 10.4 Eos % (Auto) 5.7 H Baso % (Auto) 0.6 Neut # (Auto) 4200 Lymph # (Auto) 2100 [place] # (Auto) 800 Eos # (Auto) 400 Baso # (Auto) 0 Discharge Plan Discharge Plan Patient Disposition: Home Discharge comment: Stable Discharge Med Rec/Prescriptions Prescriptions: New aspirin 81 mg Tablet,Delayed Release (Dr/Ec) 162 mg PO DAILY Qty: 180 RF: 3 atorvastatin [Lipitor] 20 mg Tablet 20 mg PO BEDTIME Qty: 180 RF: 3 clopidogrel 75 mg Tablet 75 mg PO DAILY Qty: 21 RF: 0 lisinopril 10 mg tablet 10 mg PO DAILY Qty: 30 RF: 11 Continued omeprazole 20 mg Capsule,Delayed Release(Dr/Ec) 20 mg PO DAILY RF: 0 hydrocodone-chlorpheniramine 10-8 mg/5 mL Suspension,Extended Rel 12 Hr 5 ml PO Q12H PRN (Reason: Cough) RF: 0 sildenafil (antihypertensive) 20 mg Tablet 40 - 100 mg PO PRN PRN (Reason: Erectile Dysfunction) RF: 0 multivitamin Tablet 1 tab PO DAILY RF: 0 Discontinued aspirin 81 MG tablet,delayed release (DR/EC) 81 mg PO DAILY Qty: 0 RF: 0 meloxicam 15 mg tablet 15 mg PO DAILY PRN (Reason: pain) RF: 0 Follow up/Referrals: Glen Cortes MD [Primary Care Provider] - Krissy Noguera MD [Non-Staff] - 03/09/19 (Please schedule f/u appt on 03/09/19, Dr. Noguera, [facility]) Provider Discharge Instructions Diet: Low-sodium and Low-cholesterol Activity: As tolerated Skin/Wound/Dressing Care Report to your healthcare provider any signs of infection, such as:: chills, fever and increased pain Visit Report/Discharge Packet Instructions: Transient Ischemic Attack, DI for Transient Ischemic Attack Discharge Data Primary Care Provider: Glen Cortes Attending Provider: Roddy Barcenas Admit Date/Time: 03/02/19 17:23
--- NOTE | 2019-03-04 09:12 | SLP.IPNOTE ---
Followed up with pt prior to hospital dc. was present. Both pt and report pt is back to baseline. No complaints related to swallow, expressive, receptive or cognitive communication. Informed pt/ of Speech Pathology services, should they be needed in the future. Both verbalized understanding. No treatment warranted today.
[2019-03-04] MEDS: ASPIRIN EC 81 MG TABLET 162 MG PO (09:17)
[2019-03-04] MEDS: CLOPIDOGREL 75 MG TABLET PO (09:17)
[2019-03-04 09:23] VITALS: O2SAT 96
[2019-03-04 15:31] LABS: Hemoglobin A1C% w Est Avg Glu 5.2 % (4.0-6.0)
== END 2019-03-04 09:45 | disposition home or self-care (01) ==
LOC: ED 17:07 → AC 17:25
PROVIDERS: Student in an Organized Health Care Education/Training Program; Admitting Provider Family Medicine; Emergency Provider Emergency Medicine; Family Provider Family Medicine; PCP Family Medicine; Visit Provider Family Medicine
DX: G45.9 Transient cerebral ischemic attack, unspecified (principal); R29.818 Other symptoms and signs involving the nervous system; R47.01 Aphasia; E78.5 Hyperlipidemia, unspecified; I10 Essential (primary) hypertension; K21.9 Gastro-esophageal reflux disease without esophagitis; N40.0 Benign prostatic hyperplasia without lower urinary tract symptoms
CPT/HCPCS: 36415; 36591; 70450; 70496; 70498; 70548; 70553; 80048; 80305; 81003; 81015; 82962; 83036; 85025; 85610; 85730; 92523; 93005; 93306; 96360; 96361; 97161; 99284; 99285; G0378; A9579; Q9967

== ENCOUNTER 2019-03-05 21:35 | Emergency (ER) | payer MEDICARE, OTHER, SELFPAY ==
[2019-03-02 19:52] VITALS: BMI 34.6
[2019-03-05 21:40] VITALS: BP 140/121; PULSE 68; RESP 17; TEMP 36.4; O2SAT 97; BMI 34.4
--- NOTE | 2019-03-05 21:58 | ED.GENADULT ---
HPI - General Adult General Chief complaint: Hypertension Stated complaint: elevated blood pressure Time Seen by Provider: 03/05/19 21:39 Source: patient and family Mode of arrival: ambulatory Limitations: no limitations History of Present Illness HPI narrative: 78-year-old male with history of hypertension, hyperlipidemia and very recent transient ischemic attack presents to the emergency department with a chief complaint of elevated blood pressure. The patient was just seen and evaluated for a TIA and as part of his discharge diagnosis he was told to return to the emergency department for elevated blood pressures. He was initiated on lisinopril 10 mg p.o. among others. He denies any symptoms such as recurrence of stroke type symptoms or other focal neurologic deficits nor does he have headache, nausea, vomiting, chest pain, shortness of breath or abdominal pain. He is completely asymptomatic and feels great, repeatedly stating that he is just following directions, but that he just wants to go home Onset (ago): hour(s) Exacerbating factors: none Associated symptoms: denies other symptoms Treatments prior to arrival: none Related Data Home Medications Medication Instructions Recorded Confirmed hydrocodone-chlorpheniramine 5 ml PO Q12H PRN 03/02/19 03/02/19 multivitamin 1 tab PO DAILY 03/02/19 03/02/19 omeprazole 20 mg PO DAILY 03/02/19 03/02/19 sildenafil (antihypertensive) 40 - 100 mg PO PRN PRN 03/02/19 03/02/19 Previous Rx's Medication Instructions Recorded aspirin 162 mg PO DAILY #180 tab 03/04/19 atorvastatin [Lipitor] 20 mg PO BEDTIME #180 tab 03/04/19 clopidogrel 75 mg PO DAILY #21 tab 03/04/19 lisinopril 10 mg PO DAILY #30 tab NS 03/04/19 Allergies Allergy/AdvReac Type Severity Reaction Status Date / Time No Known Drug Allergies Allergy Verified 03/05/19 21:40 Review of Systems Constitutional Denies chills, Denies fever(s), Denies lethargy and Denies weakness Eyes Denies change in vision, Denies eye discharge, Denies irritation and Denies loss of vision ENT Ears, Nose, Mouth, and Throat: Denies change in voice, Denies neck pain and Denies sore throat Cardiovascular Denies chest pain, Denies irregular heart rhythm, Denies lightheadedness, Denies palpitations, Denies dyspnea, Denies dyspnea on exertion and Denies orthopnea Respiratory Denies cough, Denies dyspnea, Denies dyspnea on exertion and Denies wheezing Gastrointestinal Gastrointestinal: Denies abdominal pain, Denies change in bowel habits, Denies diarrhea, Denies nausea and Denies vomiting Genitourinary Denies hematuria, Denies flank pain, Denies urinary incontinence and Denies urinary urgency Musculoskeletal Denies neck pain Integumentary/Breasts Denies pruritus, Denies erythema, Denies rash and Denies wounds Neurologic Denies confusion, Denies loss of vision and Denies weakness Psychiatric Denies anxiety, Denies confusion, Denies depression, Denies homicidal ideation and Denies suicidal ideation Endocrine Denies palpitations Hematologic/Lymphatic Denies easy bruising Allergic/Immunologic Denies wheezing PFSH Medical History TIA (transient ischemic attack) (Acute) GERD (gastroesophageal reflux disease) (Chronic) Insomnia (Chronic) Social History (Updated 03/02/19 @ 14:50 by Shelley Carroll DO) household members: spouse Smoking Status: Never smoker alcohol intake: current substance use type: does not use Social History household members: spouse Smoking Status: Never smoker alcohol intake: current substance use type: does not use Exam Narrative Exam Narrative: GENERAL: This is a well-nourished, well-developed patient, in mild distress. HEAD: Atraumatic. Normocephalic. No temporal or scalp tenderness. EYES: Pupils equal round and reactive. Extraocular motions intact. No scleral icterus. No injection or drainage. ENT: Nose without bleeding, purulent drainage or septal hematoma. Throat without erythema, tonsillar hypertrophy or exudate. Uvula midline. Airway patent. NECK: Trachea midline. No JVD or lymphadenopathy. Supple, nontender, no meningeal signs. CARDIOVASCULAR: Regular rate and rhythm without murmurs, gallops, or rubs. RESPIRATORY: Clear to auscultation. Breath sounds equal bilaterally. No wheezes, rales, or rhonchi. GASTROINTESTINAL: Abdomen soft, non-tender, nondistended. No hepato-splenomegaly, or palpable masses. No guarding. EXTREMITIES: No clubbing, cyanosis, or edema. No joint tenderness, effusion, or edema noted. BACK: Nontender without deformity or crepitance. No flank tenderness. NEURO: AOx3. SKIN: No rash or erythema. Initial Vital Signs Initial Vital Signs: Vital Signs Temperature 97.5 F L 03/05/19 21:40 Pulse Rate 68 03/05/19 21:40 Respiratory Rate 17 03/05/19 21:40 Blood Pressure 140/121 H 03/05/19 21:40 Pulse Oximetry 97 03/05/19 21:40 Course Orders Ordered: Discontinued Medications Lisinopril (Zestril) 10 mg PO NOW ONE Stop: 03/05/19 22:32 Last Admin: 03/05/19 22:39 Dose: Not Given Consultations Consultation #1: Call to [place] stroke physician to discuss blood pressure parameters. She states that they tend to allow permissive hypertension a least for the 1st 3 or more days and then gradually focus a more aggressive blood pressure control. She states that they are largely unconcerned with systolic below 190 and diastolic blow 110, particularly in the absence of symptoms. She encouraged increasing the lisinopril and stressing return precautions to focus symptoms as opposed to numbers, and close follow-up. Consultation #2: call to Dr. Crockett (mechanical applications engineer for PCP) to discuss the case. She is in agreement and will pass the info on to PCP for the appointment on Saturday Vital Signs - 8 hr 03/05/19 22:00 03/05/19 22:53 Pulse Rate 64 Respiratory Rate 15 Blood Pressure [Left Arm] 175/119 H 170/102 H Pulse Oximetry 94 Medical Decision Making [facility] Narrative Medical decision making narrative: 78-year-old male with recent TIA presents with asymptomatic hypertension. Neurologic exam normal, no focal neurologic findings in complaint or on exam. Discussing with family, stroke neurologist, and on-call provider, we all sure the opinion that lisinopril is to be increased, patient will be discharged with return precautions to include and focus on neurologic symptoms as opposed to just a number. Patient understands the plan and is in agreement with it as evidence by his ability to repeat the plan and return precautions to me. Discharge Plan Departure Patient Disposition: Home Clinical Impression: HTN, goal: symptom mgmt only Discharge Date/Time: 03/05/19 23:05 Interventions: ED Discharge Assessment Last Done: 03/05/19 23:05 Instructions: DI for High Blood Pressure Activity Restrictions/Additional Instructions: *You have been diagnosed with [ hypertension with recent TIA ] *What to do: *Take medications as directed: Increase Lisinopril to 20mg daily *Follow up with your primary care provider in 2-3 days, call for an appointment. Let them know you were seen in the Emergency Department and that we ask that you be seen in follow up *Return to ER if you should have any new, worsening or concerning symptoms such as recurrence of stroke symptoms like speech trouble, vision, numbness, or weakness of extremities Prescriptions: No Action omeprazole 20 mg Capsule,Delayed Release(Dr/Ec) 20 mg PO DAILY RF: 0 hydrocodone-chlorpheniramine 10-8 mg/5 mL Suspension,Extended Rel 12 Hr 5 ml PO Q12H PRN (Reason: Cough) RF: 0 sildenafil (antihypertensive) 20 mg Tablet 40 - 100 mg PO PRN PRN (Reason: Erectile Dysfunction) RF: 0 multivitamin Tablet 1 tab PO DAILY RF: 0 aspirin 81 mg Tablet,Delayed Release (Dr/Ec) 162 mg PO DAILY Qty: 180 RF: 3 atorvastatin [Lipitor] 20 mg Tablet 20 mg PO BEDTIME Qty: 180 RF: 3 clopidogrel 75 mg Tablet 75 mg PO DAILY Qty: 21 RF: 0 lisinopril 10 mg tablet 10 mg PO DAILY Qty: 30 RF: 11 Referrals: Glen Cortes MD [Primary Care Provider] -
[2019-03-05 22:00] VITALS: BP 175/119; PULSE 64; RESP 15; O2SAT 94
--- NOTE | 2019-03-05 22:40 | PC.NURSE ---
Pt took home medication. Holding lisinopril.
[2019-03-05 22:53] VITALS: BP 170/102
== END 2019-03-05 23:05 | disposition home or self-care (01) ==
PROVIDERS: Emergency Provider Emergency Medicine; Family Provider Family Medicine; PCP Family Medicine
DX: I10 Essential (primary) hypertension (principal)
CPT/HCPCS: 99282; 99283

== ENCOUNTER → 2019-03-18 10:28 | Outpatient (CLI) | payer MEDICARE, OTHER, SELFPAY ==
[2019-03-02 19:52] VITALS: BMI 34.6
--- NOTE | 2019-03-18 | DI.US.S_ITS ---
PROCEDURE: US CAROTID DOPPLER BI INDICATIONS: CAROTID STENOSIS TECHNIQUE: Color and pulse Doppler interrogation was performed of both carotid systems, with image documentation and velocity measurements. COMPARISON: [facility], , CAROTID ARTERY DOPPLER BILAT, 10/20/2013, 11:10. FINDINGS: Stenosis calculations are based on SRU (Society of Radiologists in Ultrasound) criteria. Right side: Brachial blood pressure: 140/95 mm Hg. Common carotid artery peak systolic velocity: 59 cm/sec. Internal carotid artery peak systolic velocity: 89 cm/sec. Internal carotid artery end diastolic velocity: 31 cm/sec. External carotid artery peak systolic velocity: 59 cm/sec. ICA/CCA peak systolic ratio: 1.5. Mcgraw scale imaging description: Scattered plaque. Percent internal carotid artery stenosis: Less than 50%. Vertebral artery: Flow direction is antegrade. Left side: Brachial blood pressure: 134/91 mm Hg. Common carotid artery peak systolic velocity: 63 cm/sec. Internal carotid artery peak systolic velocity: 76 cm/sec. Internal carotid artery end diastolic velocity: 33 cm/sec. External carotid artery peak systolic velocity: 84 cm/sec. ICA/CCA peak systolic ratio: 1.2. Mcgraw scale imaging description: Mild scattered plaque. Percent internal carotid artery stenosis: Less than 50%. Vertebral artery: Flow direction is antegrade. IMPRESSION: Less than 50% bilateral internal carotid artery stenosis. Dictated by: Ricardo Carrion [facility] Interpreted: Alexis Mims MD on 03/18/2019 at 14:12 Approved by: Alexis Mims M.D. on 03/18/2019 at 15:50
== END ==
PROVIDERS: PCP Student in an Organized Health Care Education/Training Program; Visit Provider Student in an Organized Health Care Education/Training Program
DX: I65.29 Occlusion and stenosis of unspecified carotid artery (principal); I65.09 Occlusion and stenosis of unspecified vertebral artery; R03.0 Elevated blood-pressure reading, without diagnosis of hypertension; I65.23 Occlusion and stenosis of bilateral carotid arteries
CPT/HCPCS: 93880

== ENCOUNTER → 2019-06-24 07:24 | Outpatient (CLI) | payer MEDICARE, OTHER, SELFPAY ==
[2019-03-02 19:52] VITALS: BMI 34.6
--- NOTE | 2019-06-24 08:49 | PM.TREADMILL ---
Cardiac Stress Test Report Referral & Results Date Patient Seen: 06/24/19 Time Patient Seen: 08:30 Requesting provider: Mony Garza Indication: CAD Procedure Note: Today following both written and verbal informed consent the patient was exercised according to a standard Thomas protocol patient went for a total of 3 minutes. Exercise was terminated at this point because of dyspnea on exertion. Exercise capacity was limited by orthopedic issues. Target heart rate not met by exercise or converted to walking Ting. The patient was placed on the treadmill at 1 mile an hour with no elevation and was then injected with the Ting scan material. The Cardiolite was then immediately administered. The patient spent an additional 2-3 minutes on the treadmill before being returned to the [facility] in the supine position. The patient had a normal response to all infused materials. Impression: Successful Ting protocol. Will await perfusion imaging. Please note: Actual ECG tracings can be found in the PACS system.
--- NOTE | 2019-06-25 16:31 | DI.NM.S_ITS ---
DATE OF SERVICE: 06/24/2019 PROCEDURE: Pharmacological perfusion study. INDICATIONS: Underlying atherosclerotic vascular disease, coronary artery calcification, hypertension, hyperlipidemia. RADIOPHARMACEUTICAL: 24.9 mCi technetium-99m Myoview IV was injected at stress and 25.4 mCi technetium-99m Myoview IV was injected at rest. CARDIAC STRESS: Initially, patient attempted exercise stress test but could not walk on treadmill because of orthopedic issues as well as shortness of breath. Hence given IV Lexiscan. He received IV Lexiscan as per protocol under the supervision of an attending staff. 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 During stress, there was some artifact without any convincing ischemic changes. There were no new significant arrhythmias. He tolerated Lexiscan without any hemodynamic instability. RAW DATA: There was increased subdiaphragmatic activity. GATED STUDY: Resting stress LV ejection fraction 74%. Stress LV ejection fraction 90%. No obvious Wall motion abnormalities. No transient ischemic dilatation. TID ratio is 0.62, which is within normal limits. Resting LV end- diastolic volume is 112 mL. Lung/heart ratio is 0.38, which is within normal limits. MYOCARDIAL PERFUSION SCAN: Stress supine, resting supine images were compared to each other. Please note, this patient does not have any prone images. During resting supine, there was small-sized minimally decreased perfusion of distal inferior wall and inferior apex. During stress, there was small -sized perfusion defect of entire inferior wall and inferior apex. CONCLUSION: This is an abnormal myocardial perfusion study with likely small reversible ischemia of base-to-mid inferior wall and mild infarction of distal inferior wall and inferior apex. Patient does not have any prone images. However, left ventricular (LV) function is preserved. No obvious wall motion abnormalities. Ischemic burden is not large. Some stress score reported to be 2 and some rest score is 1. Overall this does not appear to be a very high-risk perfusion scan. Clinical correlation is recommended. ReedZoean - HEAVENLY/lilia/ doc#: [id number]/job#: [id number] dd: 06/25/2019 14:39:00 dt: 06/25/2019 16:17:00 DICTATING MD/COPIES TO: Mony Garza MD COPIES MNE: EDWIN
== END ==
PROVIDERS: PCP Student in an Organized Health Care Education/Training Program; Visit Provider Internal Medicine Cardiovascular Disease
DX: I25.10 Atherosclerotic heart disease of native coronary artery without angina pectoris (principal); I25.84 Coronary atherosclerosis due to calcified coronary lesion; I44.4 Left anterior fascicular block; R94.39 Abnormal result of other cardiovascular function study; I10 Essential (primary) hypertension; E78.5 Hyperlipidemia, unspecified; I44.0 Atrioventricular block, first degree; I49.1 Atrial premature depolarization
CPT/HCPCS: 78452; 93016; 93017; 93018; A9502; J2785

== ENCOUNTER → 2021-02-21 15:49 | Outpatient (CLI) | payer MEDICARE, OTHER, SELFPAY ==
[2019-03-02 19:52] VITALS: BMI 34.6
--- NOTE | 2021-02-21 | DI.ECHO.S_ITS ---
[facility]---------+ [facility] +---------+ : : [address] : [place] : : : : [id number] : : : : Phone: [phone] +---------+ Echocardiogram Report + + :Name: FER ROMANO Study Date: 02/21/2021 Height: 70 in : :[facility] ReadingLocation: Weight: 228 lb : : Gender: Male BSA: 2.2 m2 : :: 1940 Age: 80 yrs BP: 107/77 mmHg: :Reason For Study: AORTIC ECTASIA : :Ordering Physician: : :VALORIE WATKINS Performed By: Viviane Fitzpatrick : :Referring: VALORIE WATKINS : + + Interpretation Summary The left ventricle is normal in size. There is mild-moderate concentric left ventricular hypertrophy. The ejection fraction is estimated to be 65-70%. There is no echo evidence for significant left ventricular outflow tract obstruction. The right ventricle is normal size. The right ventricular systolic function is normal. No significant valvular pathology seen. The aortic root is mildly dilated. 4.6 cm in diameter The ascending aorta is moderate-severely enlarged. 4.7 cm in diameter. The aortic arch is moderately enlarged. 4.0 cm in diameter. In February 2019 aortic root diameter was 4.5 cm and ascending aorta diameter about 4.7 cm. The IVC is of normal diameter and collapses greater than 50% with a sniff. This suggests a low right atrial pressure of 3 mm Hg. Procedure: A two-dimensional transthoracic echocardiogram with color flow and Doppler was performed. The study quality was technically adequate. Comparison is made with the echocardiogram of 03/03/2019. The heart rate ranged between 64-79 bpm during the study. The patient was in normal sinus rhythm during the exam. Left Ventricle: The left ventricle is normal in size. There is mild-moderate concentric left ventricular hypertrophy. There is no echo evidence for significant left ventricular outflow tract obstruction. There is no thrombus. The ejection fraction is estimated to be 65-70%. There are no focal wall motion abnormalities. E to a reversal. Right Ventricle: The right ventricle is normal size. The right ventricular systolic function is normal. Atria: The left atrium is mildly dilated. The left atrium has significantly decreased in size since the prior echo exam. Right atrial size is normal. There is no Doppler evidence for an interatrial shunt. Mitral Valve: The mitral valve leaflets are slightly calcified. There is trace mitral regurgitation. Compared to the prior echo study, there has been a decrease in the severity of mitral regurgitation. Aortic Valve: The aortic valve is trileaflet. The aortic valve opens well. There is no aortic valve stenosis. There is trace aortic regurgitation. Tricuspid Valve: The tricuspid valve is normal in structure and function. There is trace tricuspid regurgitation. Pulmonary artery pressures cannot be estimated because of the lack of a measurable TR jet velocity but the IVC suggests a CVP of around 3 mmHg. Pulmonic Valve: The pulmonic valve is not well seen, but is grossly normal. There is no pulmonic valvular regurgitation. Great Vessels: The aortic root is mildly dilated. The ascending aorta is moderate-severely enlarged. The aortic arch is moderately enlarged. The IVC is of normal diameter and collapses greater than 50% with a sniff. This suggests a low right atrial pressure of 3 mm Hg. Pericardium/ Pleura There is no pericardial effusion. There is no pleural effusion. MMode/2D Measurements & Calculations LVIDd: 4.2 cm LVOT diam: 2.3 cm LVIDs: 2.7 cm Ao root diam: 4.6 cm FS: 36.3 % asc Aorta Diam: 4.7 cm IVSd: 1.3 cm Ao Arch Diam (Prox Trans): 4.0 cm LVPWd: 1.3 cm LV quinones. diameter/BSA (cm/m^2): 1.9 LV sys. diameter/BSA (cm/m^2): 1.2 LA A2 area: 21.8 cm2 RA long axis: 4.7 cm LA A4 area: 22.7 cm2 RA area: 14.4 cm2 LA length (vol): 5.3 cm RA vol: 36.9 ml LA vol: 79.3 ml RA : 16.7 ml/m2 LA vol index: 35.9 ml/m2 IVC diam: 1.5 cm RVD1 (basal): 3.8 cm TAPSE: 1.6 cm Doppler Measurements & Calculations Ao V2 max: 132.3 cm/sec LVOT Max Alan: 127.5 cm/sec Ao V2 mean: 103.9 cm/sec LV V1 max P.5 mmHg Ao max P.0 mmHg LV V1 VTI: 23.5 cm Ao mean P.6 mmHg MILES(I,D): 4.2 cm2 Ao V2 VTI: 24.1 cm MILES(V,D): 4.1 cm2 sev ratio: 0.97 MILES indexed to BSA (cm^2/m^2): 1.9 Med Peak E' Alan: 6.5 cm/sec PA V2 max: 82.7 cm/sec Lat Peak E' Alan: 6.4 cm/sec PA V2 mean: 57.3 cm/sec PA mean P.5 mmHg PA pr(Accel): 32.8 mmHg SV(LVOT): 100.3 ml Reading Physician:09:26 AM
== END ==
PROVIDERS: PCP Student in an Organized Health Care Education/Training Program; Referring Provider Internal Medicine Cardiovascular Disease; Visit Provider Internal Medicine Cardiovascular Disease
DX: I77.810 Thoracic aortic ectasia (principal)
CPT/HCPCS: 93306

== ENCOUNTER → 2022-09-03 14:27 | Outpatient (CLI) | payer MEDICARE, OTHER, SELFPAY ==
[2019-03-02 19:52] VITALS: BMI 34.6
== END ==
PROVIDERS: PCP Student in an Organized Health Care Education/Training Program; Referring Provider Internal Medicine Cardiovascular Disease; Visit Provider Internal Medicine Cardiovascular Disease
DX: I77.810 Thoracic aortic ectasia (principal)
CPT/HCPCS: 93306

== ENCOUNTER → 2022-09-10 15:29 | Outpatient (CLI) | payer MEDICARE, OTHER, SELFPAY ==
[2019-03-02 19:52] VITALS: BMI 34.6
--- NOTE | 2022-09-10 15:31 | DI.ECHO.S_ITS ---
[facility] +---------+ [facility] +---------+ : : [address] : [place] : : : : [phone] : : : : Phone: [phone] +---------+ Echocardiogram Report + + :Name: FER ROMANO Study Date: 09/10/2022 Height: 67 in : :[facility] : Weight: 195 lb : : Gender: Male BSA: 2.0 m2 : :: 1940 Age: 82 yrs BP: 118/78 mmHg: :Reason For Study: Ascending Aorta dilatation : :Ordering Physician: Valorie : :Uriel Watkins Performed By: Viviane Winchester : :Referring: VALORIE WATKINS : + + Interpretation Summary The left ventricle is normal in size. The ejection fraction is estimated to be 65-70%. There has been no significant change in LVEF since the previous exam. The right ventricle is at the upper limits of normal in size. The right ventricular systolic function is normal. No significant valvular pathology seen. Ao root diam: 4.2 cm asc Aorta Diam: 4.7 cm Aortic arch: 3.62 cm in diameter. February 21, 2021: Ao root diam: 4.6 cm asc Aorta Diam: 4.7 cm Ao Arch Diam (Prox Trans): 4.0 cm March 03, 2029: Ao root diam: 4.5 cm asc Aorta Diam: 4.7 cm Procedure: A two-dimensional transthoracic echocardiogram with color flow and Doppler was performed. The patient was in sinus bradycardia with heart rates between 53-64 bpm during the exam. The patient was in first degree heart block during the exam. The patient had a bundle branch block rhythm during the exam. Left Ventricle: The left ventricle is normal in size. Left ventricular wall thickness is mild-moderately increased. Proximal septal thickening is noted. There is no echo evidence for significant left ventricular outflow tract obstruction. There is no thrombus. The ejection fraction is estimated to be 65-70%. There has been no significant change since the previous exam. There are no focal wall motion abnormalities. Diastolic parameters suggest a relaxation abnormality of the left ventricle, consistent with probable normal filling pressures. Right Ventricle: The right ventricle is at the upper limits of normal in size. The right ventricular systolic function is normal. Atria: The left atrium is moderately dilated. The left atrium has mildly increased in size since the prior echo exam. The right atrium is mildly dilated. There is no Doppler evidence for an interatrial shunt. Mitral Valve: The mitral valve is normal in structure and function. There is trace mitral regurgitation. Aortic Valve: The aortic valve is normal in structure and function. The aortic valve is trileaflet. The aortic valve opens well. There is no aortic valve stenosis. There is trace aortic regurgitation. Tricuspid Valve: The tricuspid valve is normal in structure and function. There is trace tricuspid regurgitation. Pulmonary artery pressures cannot be estimated because of the lack of a measurable TR jet velocity. Pulmonic Valve: The pulmonic valve leaflets are thin and pliable; valve motion is normal. There is a trace or physiologic amount of pulmonic regurgitation. Great Vessels: The aortic root is mildly dilated. The ascending aorta is moderate-severely enlarged. This is unchanged compared to the previous study. The IVC is of normal diameter and collapses greater than 50% with a sniff. This suggests a low right atrial pressure of 3 mm Hg. Pericardium/ Pleura There is no pericardial effusion. There is no pleural effusion. MMode/2D Measurements & Calculations LVIDd: 3.1 cm LVOT diam: 2.4 cm LVIDs: 2.0 cm Ao root diam: 4.2 cm FS: 35.5 % asc Aorta Diam: 4.7 cm EPSS: 1.2 cm IVSd: 1.3 cm LVPWd: 1.3 cm LV quinones. diameter/BSA (cm/m^2): 1.5 LV sys. diameter/BSA (cm/m^2): 1.00 LA dimension: 4.0 cm RA long axis: 4.7 cm LA A2 area: 22.8 cm2 RA area: 16.3 cm2 LA A4 area: 23.9 cm2 RA vol: 47.9 ml LA length (vol): 5.6 cm RA : 24.0 ml/m2 LA vol: 82.2 ml LA vol index: 41.1 ml/m2 LVLs ap4: 6.4 cm LVLd ap2: 9.9 cm LVLs ap2: 7.5 cm TAPSE_phl: 1.9 cm Doppler Measurements & Calculations Ao V2 max: 118.0 cm/sec LVOT Max Alan: 124.0 cm/sec Ao V2 mean: 86.9 cm/sec LV V1 max P.2 mmHg Ao max P.0 mmHg LV V1 VTI: 29.2 cm Ao mean P.0 mmHg MILES(I,D): 4.8 cm2 Ao V2 VTI: 27.7 cm MILES(V,D): 4.8 cm2 sev ratio: 1.1 MILES indexed to BSA (cm^2/m^2): 2.4 MV E max alan: 57.2 cm/sec TR max alan: 211.0 cm/sec MV A max alan: 85.3 cm/sec TR max P.8 mmHg MV E/A: 0.67 PA V2 max: 83.0 cm/sec Med Peak E' Alan: 4.7 cm/sec PA V2 mean: 59.0 cm/sec E/E' med: 12.3 PA mean P.0 mmHg Lat Peak E' Alan: 7.8 cm/sec E/E' lat: 7.4 E/e' average: 9.8 MV dec time: 0.16 sec MVA(VTI): 6.8 cm2 MV V2 mean: 47.9 cm/sec SV(LVOT): 132.1 ml MV mean P.0 mmHg MV V2 VTI: 19.5 cm AV VR_phl: 1.1 MILES(VTI)/BSA_phl: 2.4 Reading Physician:04:43 PM
== END ==
PROVIDERS: PCP Student in an Organized Health Care Education/Training Program; Referring Provider Internal Medicine Cardiovascular Disease; Visit Provider Internal Medicine Cardiovascular Disease
DX: I77.810 Thoracic aortic ectasia (principal); I77.89 Other specified disorders of arteries and arterioles
CPT/HCPCS: 93306

== ENCOUNTER 2023-12-23 13:51 | Emergency (ER) | payer MEDICARE, OTHER, SELFPAY ==
[2019-03-02 19:52] VITALS: BMI 34.6
[2023-12-23] VITALS (16 sets, daily range): BP systolic 154–205; BP diastolic 92–104; PULSE 50–63; RESP 9–22; TEMP 36.8–36.9; O2SAT 97–100; BMI 30.4
--- NOTE | 2023-12-23 14:20 | DI.RAD.S_ITS ---
PROCEDURE: XR CHEST 1V INDICATIONS: chest pain TECHNIQUE: One view of the chest was acquired. COMPARISON: [facility], , CHEST 1 VIEW, 11/03/2017, 17:31. FINDINGS: Surgical changes and devices: Bilateral shoulder arthroplasties. Lungs and pleura: Mildly low lung volumes without dense airspace disease or pleural effusion. Mediastinum: Unchanged cardiomediastinal contours. Normal heart size Bones and chest wall: Unremarkable IMPRESSION: Mildly low lung volumes on single view radiography, limiting evaluation. No acute abnormality. Dictated by: Mata Bagley M.D. on 12/23/2023 at 15:08 Approved by: Mata Bagley M.D. on 12/23/2023 at 15:09
[2023-12-23 14:26] LABS: Add Manual Diff / Slide Review NO; Basophils Absolute Auto 100 /uL (0-100); Basophils Percent Auto 0.8 % (0-2); Eosinophils Absolute Auto 300 /uL (0-450); Eosinophils Percent Auto 3.3 % (2-4); Hematocrit 42.1 % (41-53); Hemoglobin 14.4 g/dL (13.5-17.5); Lymphocytes Absolute Auto 1900 /uL (1100-4500); Lymphocytes Percent Auto 21.3 % (25-40); Mean Corpuscular HGB Conc 34.1 % (30-36); Mean Corpuscular Hemoglobin 31.5 PG (26-34); Mean Corpuscular Volume 92.3 fL (80-100); Monocytes Absolute Auto 900 /uL (0-900); Monocytes Percent Auto 9.8 % (3-14); Neutrophils Absolute Auto 5700 /uL (1500-7000); Neutrophils Percent Auto 64.8 % (50-75); Platelet Count 210 X10^3/uL (150-400); Red Blood Cell Count 4.56 X10^6/uL (4.5-5.9); Red Cell Distribution Width 13.2 % (11.6-14.8); White Blood Cell Count 8.8 X10^3/uL (4.5-11.0)
[2023-12-23 14:31] LABS: INR 1.1 (0.9-1.3); Prothrombin Time 12.1 SECONDS (9.4-12.5)
[2023-12-23 14:34] LABS: PTT Partial Thromboplastin Tim 34 SECONDS (25.1-36.5)
[2023-12-23 14:37] LABS: Alanine Aminotransferase 15 IU/L (<50); Albumin Globulin Ratio 1.4 (1.0-2.8); Alkaline Phosphatase 58 U/L (38-126); Aspartate Aminotransferase 20 IU/L (17-59); BUN Creatinine Ratio 15.3 (6-22); Bilirubin Total 0.9 mg/dL (0.2-1.3); Blood Urea Nitrogen 17 mg/dL (9-20); Calcium 8.8 mg/dL (8.4-10.2); Carbon Dioxide 25 mmol/L (22-32); Chloride 105 mmol/L (98-107); Creatine Kinase 130 U/L (55-170); Estimated Glomerular Filt Rate > 60 mL/min (>60); Globulin 2.9 g/dL (1.7-4.1); Glucose 94 mg/dL (80-110); HEMOLYSIS < 15 (0-50); Lipase 62 U/L (23-300); Magnesium 1.9 mg/dL (1.6-2.3); Sodium 137 mmol/L (137-145); Total Protein 6.9 g/dL (6.3-8.2)
[2023-12-23 14:49] LABS: Troponin I < 0.012 ng/mL (0.01-0.034)
--- NOTE | 2023-12-23 17:07 | ED_ITS ---
HPI - General Adult General Chief complaint: Weakness Stated complaint: per pt has been collapsing Time Seen by Provider: 12/23/23 15:51 Source: patient Mode of arrival: Ambulatory History of Present Illness HPI narrative: 83-year-old gentleman with a history of hypertension, hyperlipidemia prior TIA who presents to the ER complaining of weakness and describing 3 discrete episodes where his legs just ?gave way? he landed on his knees. He has not currently on anticoagulants, he is not complaining of localizing weakness, chest pain, dyspnea, orthopnea. He does report some muscle fasciculation over the last number of days. No headaches, cough, fevers, nausea, vomiting or diarrhea. On further questioning he notes that he has had episodes of myoclonic type jerking of his upper extremities. He also has fairly regular episodes of acute word-finding difficulty lasting for minutes at a time. He did have a neurology consult 2 years ago with no significant follow up. Related Data Home Medications Medication Instructions Recorded Confirmed hydrocodone 10 mg-chlorpheniramine 5 ml PO Q12H PRN Cough 03/02/19 03/02/19 8 mg/5 mL oral susp extend.rel 12hr multivitamin 1 tab PO DAILY 03/02/19 03/02/19 omeprazole 20 mg capsule,delayed 20 mg PO DAILY 03/02/19 03/02/19 release sildenafil (pulm.hypertension) 20 40 - 100 mg PO PRN PRN Erectile 03/02/19 03/02/19 mg tablet Dysfunction Previous Rx's Medication Instructions Recorded aspirin 81 mg tablet,delayed 162 mg (2 x 81 mg) PO DAILY #180 03/04/19 release tabs atorvastatin 20 mg tablet (Lipitor) 20 mg PO BEDTIME #180 tabs 03/04/19 clopidogrel 75 mg tablet 75 mg PO DAILY #21 tabs 03/04/19 lisinopril 10 mg tablet 10 mg PO DAILY HTN #30 tabs 03/04/19 levetiracetam 500 mg tablet 500 mg PO BID #60 tabs 12/23/23 Allergies Allergy/AdvReac Type Severity Reaction Status Date / Time No Known Drug Allergies Allergy Verified 03/05/19 21:40 Review of Systems Review of Systems Narrative: Pertinent positive and negative findings as per HPI Patient History Medical History (Updated 12/23/23 @ 17:48 by Johnna Diaz MD) Myoclonus Insomnia GERD (gastroesophageal reflux disease) TIA (transient ischemic attack) Social History household members: spouse Smoking Status: Never smoker alcohol intake: current substance use type: does not use Smoking Status: Never smoker alcohol intake frequency: a few times a week Substance Use Type: does not use Exam Initial Vital Signs Initial Vital Signs: Vital Signs Temperature 98.2 F 12/23/23 14:01 Pulse Rate 62 12/23/23 14:01 Respiratory Rate 18 12/23/23 14:01 Blood Pressure 154/94 H 12/23/23 14:01 Pulse Oximetry 98 12/23/23 14:01 Oxygen Delivery Method Room Air 12/23/23 14:01 General: Healthy appearing, in no acute distress. Able to give a complete and coherent history. Well-nourished well-developed HEENT: Moist mucous membranes, normal sclera with reactive pupils, Respiratory: Full and symmetrical air movement Cardiac: Regular rate and rhythm no murmurs no bruits Abdomen: Soft, nontender, g Skin: Warm and dry, no rashes Neurologic: Grossly neurologically intact with no obvious asymmetries or abnormalities, reflexes are appropriate, no clonus appreciated Extremities: No trauma, well perfused Psych: Cooperative, appropriate insight and affect Course Orders Ordered: ED Orders 12/23/23 14:15 Complete Blood Count AUTO DIFF Stat Comprehensive Metabolic Panel Stat Lipase Stat Magnesium Stat PTT Partial Thromboplastin Jamie Stat Prothrombin Time INR Stat Troponin & CK Cardiac Panel Stat 12/23/23 14:20 XR chest 1V Stat EKG-12 Lead Stat Sodium Chloride (Sodium Chloride 0.9% Flush) 10 ml IV BID KALANI Sodium Chloride (Sodium Chloride 0.9% Flush) 10 ml IV PRN PRN PRN Reason: Flush Vital Signs Vital signs: Vital Signs - 8 hr 12/23/23 14:01 12/23/23 15:14 12/23/23 15:30 Temperature 98.2 F Pulse Rate 62 55 L 53 L Pulse Rate [Orthostatic Lying] Pulse Rate [Orthostatic Sitting] Pulse Rate [Orthostatic Standing] Respiratory Rate 18 10 L 19 Blood Pressure 154/94 H Blood Pressure [Orthostatic Lying] Blood Pressure [Orthostatic Sitting] Blood Pressure [Orthostatic Standing] Pulse Oximetry 98 98 98 Oxygen Delivery Method Room Air Room Air 12/23/23 15:31 12/23/23 15:31 12/23/23 15:37 Temperature Pulse Rate 63 Pulse Rate [Orthostatic Lying] Pulse Rate [Orthostatic Sitting] Pulse Rate [Orthostatic Standing] Respiratory Rate 15 Blood Pressure 189/94 H 196/93 H Blood Pressure [Orthostatic Lying] Blood Pressure [Orthostatic Sitting] Blood Pressure [Orthostatic Standing] Pulse Oximetry 99 Oxygen Delivery Method 12/23/23 15:37 12/23/23 15:38 12/23/23 15:38 Temperature Pulse Rate 53 L 51 L Pulse Rate [Orthostatic Lying] Pulse Rate [Orthostatic Sitting] Pulse Rate [Orthostatic Standing] Respiratory Rate 14 15 Blood Pressure 200/102 H Blood Pressure [Orthostatic Lying] Blood Pressure [Orthostatic Sitting] Blood Pressure [Orthostatic Standing] Pulse Oximetry 97 97 Oxygen Delivery Method 12/23/23 16:00 12/23/23 16:00 12/23/23 16:11 Temperature Pulse Rate 52 L Pulse Rate [Orthostatic Lying] Pulse Rate [Orthostatic Sitting] Pulse Rate [Orthostatic Standing] Respiratory Rate 11 L Blood Pressure 205/98 H 201/104 H Blood Pressure [Orthostatic Lying] Blood Pressure [Orthostatic Sitting] Blood Pressure [Orthostatic Standing] Pulse Oximetry 98 Oxygen Delivery Method 12/23/23 16:11 12/23/23 16:26 12/23/23 16:26 Temperature Pulse Rate 58 L 52 L Pulse Rate [Orthostatic Lying] Pulse Rate [Orthostatic Sitting] Pulse Rate [Orthostatic Standing] Respiratory Rate 22 10 L Blood Pressure 200/95 H Blood Pressure [Orthostatic Lying] Blood Pressure [Orthostatic Sitting] Blood Pressure [Orthostatic Standing] Pulse Oximetry 99 98 Oxygen Delivery Method 12/23/23 16:30 12/23/23 16:30 12/23/23 16:45 Temperature Pulse Rate 51 L 52 L Pulse Rate [Orthostatic Lying] Pulse Rate [Orthostatic Sitting] Pulse Rate [Orthostatic Standing] Respiratory Rate 12 9 L Blood Pressure 196/96 H Blood Pressure [Orthostatic Lying] Blood Pressure [Orthostatic Sitting] Blood Pressure [Orthostatic Standing] Pulse Oximetry 98 98 Oxygen Delivery Method Room Air 12/23/23 16:45 12/23/23 16:47 12/23/23 16:47 Temperature Pulse Rate 55 L Pulse Rate [Orthostatic Lying] Pulse Rate [Orthostatic Sitting] Pulse Rate [Orthostatic Standing] Respiratory Rate 17 Blood Pressure 192/92 H 179/99 H Blood Pressure [Orthostatic Lying] Blood Pressure [Orthostatic Sitting] Blood Pressure [Orthostatic Standing] Pulse Oximetry 98 Oxygen Delivery Method 12/23/23 16:49 12/23/23 16:49 12/23/23 16:51 Temperature Pulse Rate 63 Pulse Rate [Orthostatic Lying] 50 L Pulse Rate [Orthostatic Sitting] 54 L Pulse Rate [Orthostatic Standing] 63 Respiratory Rate 9 L Blood Pressure 187/94 H Blood Pressure [Orthostatic Lying] 192/92 H Blood Pressure [Orthostatic Sitting] 179/99 H Blood Pressure [Orthostatic Standing] 187/94 H Pulse Oximetry 97 Oxygen Delivery Method 12/23/23 17:00 12/23/23 17:00 Temperature Pulse Rate 51 L Pulse Rate [Orthostatic Lying] Pulse Rate [Orthostatic Sitting] Pulse Rate [Orthostatic Standing] Respiratory Rate 9 L Blood Pressure 197/104 H Blood Pressure [Orthostatic Lying] Blood Pressure [Orthostatic Sitting] Blood Pressure [Orthostatic Standing] Pulse Oximetry 98 Oxygen Delivery Method Medical Decision Making Lab Data 12/23/23 14:15 12/23/23 14:15 Labs: Lab Results 12/23/23 Range/Units 14:15 WBC 8.8 (4.5-11.0) X10^3/uL RBC 4.56 (4.5-5.9) X10^6/uL Hgb 14.4 (13.5-17.5) g/dL Hct 42.1 (41-53) % MCV 92.3 (80-100) fL MCH 31.5 (26-34) PG MCHC 34.1 (30-36) % RDW 13.2 (11.6-14.8) % Plt Count 210 (150-400) X10^3/uL Neut % (Auto) 64.8 (50-75) % Lymph % (Auto) 21.3 L (25-40) % [place] % (Auto) 9.8 (3-14) % Eos % (Auto) 3.3 (2-4) % Baso % (Auto) 0.8 (0-2) % Neut # (Auto) 5700 (5713-5115) /uL Lymph # (Auto) 1900 (8647-0119) /uL [place] # (Auto) 900 (0-900) /uL Eos # (Auto) 300 (0-450) /uL Baso # (Auto) 100 (0-100) /uL PT 12.1 (9.4-12.5) SECONDS INR 1.1 (0.9-1.3) APTT 34 (25.1-36.5) SECONDS Sodium 137 (137-145) mmol/L Potassium 4.0 (3.4-5.1) mmol/L Chloride 105 (98-107) mmol/L Carbon Dioxide 25 (22-32) mmol/L BUN 17 (9-20) mg/dL Creatinine 1.11 (0.66-1.25) mg/dL Estimated GFR > 60 (>60) mL/min BUN/Creatinine Ratio 15.3 (6-22) Glucose 94 (80-110) mg/dL Calcium 8.8 (8.4-10.2) mg/dL Magnesium 1.9 (1.6-2.3) mg/dL Total Bilirubin 0.9 (0.2-1.3) mg/dL AST 20 (17-59) IU/L ALT 15 (<50) IU/L Alkaline Phosphatase 58 (38-126) U/L Total Creatine Kinase 130 (55-170) U/L Troponin I < 0.012 (0.01-0.034) ng/mL Total Protein 6.9 (6.3-8.2) g/dL Albumin 4.0 (3.5-5.0) g/dL Globulin 2.9 (1.7-4.1) g/dL Albumin/Globulin Ratio 1.4 (1.0-2.8) Lipase 62 (23-300) U/L Urine Dip Bedside Urine Glucose Negative Bedside Urine Bilirubin - Negative Bedside Urine Ketone - Negative Urine Specific [place] 1.020 Bedside Urine Occult Blood - Negative Bedside Urine pH 6.0 Bedside Urine Protein - Negative Bedside Urine Urobilinogen - Negative Bedside Urine Nitrite - Negative Bedside Urine Leukocytes - Negative Esterase Point of care testing: Urine Dip Bedside Urine Glucose Negative Bedside Urine Bilirubin - Negative Bedside Urine Ketone - Negative Urine Specific [place] 1.020 Bedside Urine Occult Blood - Negative Bedside Urine pH 6.0 Bedside Urine Protein - Negative Bedside Urine Urobilinogen - Negative Bedside Urine Nitrite - Negative Bedside Urine Leukocytes - Negative Esterase [facility] Narrative Medical decision making narrative: CC: Muscle jerks that are causing him to fall to his knees Complicating co-morbidities: Almost 10 year history of upper extremity jerking type options, brief episodes of word-finding difficulties that at 1 point were considered to be TIAs but in retrospect might actually be partial seizures. Hypertension, hyperlipidemia Data collected from: patient, Medical records reviewed: Neurology note from May 27, 2022 is reviewed. MRI and EEG ordered from that visit also reviewed. No acute findings appreciated. Recommendation from neurologist at that time was to consider a trial of Keppra to see if this might be myoclonus versus partial seizures. Differential considered: Seizures, brain tumor, spine tumor, electrolyte abnormalities Exam documented above, pertinent findings include: Exam is benign revealing a very healthy 83-year-old gentleman Lab Test results independently reviewed as above. Pertinent findings: CBC is reassuring Chemistries show no significant abnormalities with normal electrolytes and renal function Troponin is undetectable Independently reviewed EKG: EKG shows sinus rhythm at a rate of 59 with a left bundle branch block. No acute ischemic changes Imaging studies independently reviewed: Chest x-ray with no significant cardiomegaly, infiltrates or effusions Treatments: 500 mg of Keppra orally Discussion: 83-year-old gentleman with what sounds like myoclonic jerks together together we reviewed in detailed the neurology consultation note, MRI and EEG that was done 2 years ago. With the relatively normal exam, imaging and lab work all within normal limits we had a discussion regarding possible partial seizure activity is the source of his symptoms. Together we opted to proceed with a 1 month trial of Keppra 500 mg b.i.d.. I asked him to keep track of his symptoms, severity and frequency and schedule an appointment with his primary care physician to review all of this information and decide if Keppra is a medicine that should be continued. At this point I do not have any evidence of more significant pathology, reason for advanced imaging or hospitalization at this time. Questions are answered and he is safe for discharge Discharge Plan Departure Patient Disposition: Home Clinical Impression: Myoclonus Instructions: Myoclonus Activity Restrictions/Additional Instructions: Thank you for coming in today I do not have a complete explanation for these episodes that you are having. Your workup in the ER was very reassuring with no kidney, liver, electrolyte abnormalities. No evidence of infection. With the acute muscle twitching, the medical term for that is myoclonus. That may explain some of the symptoms you have been having an your upper extremities over the years as well. Together we reviewed your neurology note from almost 2 years ago with discussion of the same thing. You had an MRI of your brain as well as an EEG at that time. There was no evidence of tumors, masses, strokes or obvious seizures. Dr. Espinoza had recommended trying Keppra as a medication to calm overall brain activity and decrease the muscle jerks. It will be interesting to see if it also decreases your overall episodes of word-finding difficulties. All of the symptoms may be partial seizures. We are entering into the art of medicine at this point. I am going to suggest that you try Keppra 500 mg morning and night, which is a relatively small starting dose, for the next month. I would encourage you to keep a calendar of the muscle twitches in your arms, your legs and also if you have any episodes of the word finding issues. You do need to schedule an appointment with Dr. Barcenas and review this calendar with him. Together you can decide if Keppra is a medicine that is appropriate or required for you to continue. The prescription for Keppra was electronically transmitted to [facility] in [place]. If you find that you are getting worse or have new symptoms, please return to the ER Prescriptions: New levetiracetam 500 mg tablet 500 mg PO BID Qty: 60 1RF No Action omeprazole 20 mg Capsule,Delayed Release(Dr/Ec) 20 mg PO DAILY hydrocodone-chlorpheniramine 10-8 mg/5 mL Suspension,Extended Rel 12 Hr 5 ml PO Q12H PRN (Reason: Cough) sildenafil (pulm.hypertension) 20 mg Tablet 40 - 100 mg PO PRN PRN (Reason: Erectile Dysfunction) Rx Instructions: 2-5 tablets 1 hour prior to sexual activity multivitamin Tablet 1 tab PO DAILY aspirin 81 mg Tablet,Delayed Release (Dr/Ec) 162 mg PO DAILY Qty: 180 3RF atorvastatin [Lipitor] 20 mg Tablet 20 mg PO BEDTIME Qty: 180 3RF clopidogrel 75 mg Tablet 75 mg PO DAILY Qty: 21 0RF lisinopril 10 mg tablet 10 mg PO DAILY Qty: 30 11RF Referrals: Krissy Noguera MD [Primary Care Provider] - Stand Alone Forms: Patient Portal/API
[2023-12-23] MEDS: levETIRAcetam 250 MG TABLET 500 MG PO (17:58)
== END 2023-12-23 18:09 | disposition home or self-care (01) ==
PROVIDERS: Emergency Provider Emergency Medicine; PCP Student in an Organized Health Care Education/Training Program
DX: G25.3 Myoclonus (principal); R07.9 Chest pain, unspecified
CPT/HCPCS: 36415; 71045; 80053; 81003; 82550; 83690; 83735; 84484; 85025; 85610; 85730; 93005; 99284

== ENCOUNTER → 2023-12-27 15:39 | Outpatient (CLI) | payer MEDICARE, OTHER, SELFPAY ==
[2019-03-02 19:52] VITALS: BMI 34.6
--- NOTE | 2023-12-27 15:41 | DI.MRI.S_ITS ---
PROCEDURE: MR HEAD/BRAIN WO/W CON INDICATIONS: Transient cerebral ischemic attack TECHNIQUE: Noncontrast axial T1 spin echo, axial T2 fast spin echo, sagittal and axial FLAIR, coronal T2 fast spin echo, axial gradient echo, axial diffusion and ADC through the brain. After the administration of contrast, axial and coronal and sagittal 3D VIBE or T1 spin echo with fat saturation through the brain. COMPARISON: None. FINDINGS: Image quality: Excellent. CSF Spaces: Basal cisterns are patent. No extra-axial fluid collections. Ventricles are normal in size and shape. Brain: No intracranial masses or hemorrhage. Mcgraw/white matter interface is normal. Brainstem appears normal. Diffusion-weighted sequence is unremarkable without evidence of acute infarct. Normal intravascular flow voids are present. Skull and face: Calvarial marrow is normal in signal. Orbits appear normal. Bilateral intraocular lens replacements noted. Sinuses: Sinuses and mastoids appear clear. IMPRESSION: 1. Atrophy and chronic ischemic change without acute infarct, hemorrhage or mass lesion Approved by: Huang Nelson M.D. on 12/27/2023 at 17:02
== END ==
PROVIDERS: PCP Family Medicine; Referring Provider Family Medicine; Visit Provider Family Medicine
DX: G45.9 Transient cerebral ischemic attack, unspecified (principal); G31.9 Degenerative disease of nervous system, unspecified
CPT/HCPCS: 70553; A9579

== ENCOUNTER → 2024-01-14 12:41 | Outpatient (CLI) | payer MEDICARE, OTHER, SELFPAY ==
[2019-03-02 19:52] VITALS: BMI 34.6
--- NOTE | 2024-01-14 12:43 | DI.US.S_ITS ---
PROCEDURE: US CAROTID DOPPLER BI INDICATIONS: TIA / STENOSI OF BOTH VERTEBRAL ARTERIES /LEG WEAK TECHNIQUE: Color and pulse Doppler interrogation was performed of both carotid systems, with image documentation and velocity measurements. COMPARISON: [facility], , US CAROTID DOPPLER BI, 03/18/2019, 11:07. FINDINGS: Stenosis calculations are based on SRU (Society of Radiologists in Ultrasound) criteria. Right side: Brachial blood pressure: 86/72 mm Hg. Common carotid artery peak systolic velocity: 99 cm/sec. Internal carotid artery peak systolic velocity: 31 cm/sec. Internal carotid artery end diastolic velocity: 7 cm/sec. External carotid artery peak systolic velocity: 85 cm/sec. ICA/CCA peak systolic ratio: 0.3. Mcgraw scale imaging description: Atherosclerotic plaque involving origin of right internal carotid artery is seen. Percent internal carotid artery stenosis: Less than 50%. Vertebral artery: Flow direction is antegrade. Left side: Brachial blood pressure: Unable to obtain. Common carotid artery peak systolic velocity: 75 cm/sec. Internal carotid artery peak systolic velocity: 72 cm/sec. Internal carotid artery end diastolic velocity: 29 cm/sec. External carotid artery peak systolic velocity: 80 cm/sec. ICA/CCA peak systolic ratio: 0.95. Mcgraw scale imaging description: Mild atherosclerotic plaques are seen in distal left common carotid artery. Percent internal carotid artery stenosis: Less than 50%. Vertebral artery: Flow direction is antegrade. IMPRESSION: 1. Less than 50% stenosis in bilateral proximal internal carotid arteries. 2. Patient was hypotensive during the exam and was sent to the ER afterwards for management. Dictated by: Raghav Stoddard M.D. on 01/14/2024 at 18:12 Approved by: Raghav Stoddard M.D. on 01/14/2024 at 18:14
--- NOTE | 2024-01-14 12:43 | DI.MRI.S_ITS ---
PROCEDURE: MR LUMBAR SPINE WO CON INDICATIONS: TIA / STENOSI OF BOTH VERTEBRAL ARTERIES TECHNIQUE: Noncontrast sagittal T1 spin echo and T2 fast echo, sagittal STIR, and T2 fast spin echo through the lumbar spine. In cases with scoliosis, additional coronal T2 fast spin echo may be performed. COMPARISON: None. FINDINGS: Image quality: Excellent. Alignment and Curvature: Grade 1 anterolisthesis of L2 on L3, L3 on L4 and L4 on L5. Bone Marrow: Multilevel degenerative endplate changes. Marrow is of normal overall signal. No acute vertebral body compression fractures. Spinal Cord: Conus medullaris terminates at the L1 level. Visualized cord demonstrates normal signal and size. Paraspinous Soft Tissues: No paravertebral masses. Multiple bilateral simple appearing renal cysts. T12-L1: Normal appearance. L1-L2: Facet arthropathy. No central canal or neural foraminal stenosis. L2-L3: Disc desiccation and diffuse disc bulge. Facet arthropathy and thickening of ligamentum flavum. Epidural lipomatosis. Moderate to severe central canal stenosis. No significant neural foraminal stenosis. L3-L4: Disc desiccation and mild disc bulge. Anterolisthesis. Facet arthropathy and thickening of ligamentum flavum. Moderate central canal stenosis. Mild bilateral neural foraminal stenosis. L4-L5: Anterolisthesis. Disc desiccation height loss. Posterior disc bulge. Facet arthropathy and thickening of ligamentum flavum. Mild to moderate central canal stenosis. Mild bilateral neural foraminal stenosis. L5-S1: Disc desiccation and mild diffuse disc bulge. Facet arthropathy. No central canal stenosis. Mild bilateral neural foraminal stenosis. IMPRESSION: 1. Multilevel degenerative changes of the lumbar spine as described above. 2. There is moderate to severe central canal stenosis at L2-L3. Moderate central canal stenosis at L3-L4. 3. Mild multilevel neural foraminal stenosis. Dictated by: Abhay Henry M.D. on 01/14/2024 at 16:33 Approved by: Abhay Henry M.D. on 01/14/2024 at 16:36
== END ==
PROVIDERS: PCP Family Medicine; Referring Provider Family Medicine; Visit Provider Family Medicine
DX: I95.9 Hypotension, unspecified (principal); I65.23 Occlusion and stenosis of bilateral carotid arteries; G45.9 Transient cerebral ischemic attack, unspecified; I65.03 Occlusion and stenosis of bilateral vertebral arteries; M47.816 Spondylosis without myelopathy or radiculopathy, lumbar region; M47.817 Spondylosis without myelopathy or radiculopathy, lumbosacral region; M48.061 Spinal stenosis, lumbar region without neurogenic claudication; M48.07 Spinal stenosis, lumbosacral region; R29.898 Other symptoms and signs involving the musculoskeletal system; R26.89 Other abnormalities of gait and mobility
CPT/HCPCS: 72148; 93880

== ENCOUNTER 2024-01-14 14:33 | Emergency (ER) | payer MEDICARE, OTHER, SELFPAY ==
[2019-03-02 19:52] VITALS: BMI 34.6
[2024-01-14 14:41] VITALS: BP 153/98; PULSE 70; RESP 12; O2SAT 95
[2024-01-14 14:44] VITALS: BP 114/74; BP 153/98; BP 154/90; PULSE 70; PULSE 71
--- NOTE | 2024-01-14 14:58 | ED.FALL ---
HPI - Fall General Chief Complaint: Fall Stated Complaint: sent from DI Time Seen by Provider: 01/14/24 14:33 Source: patient and other Mode of arrival: Wheelchair History of Present Illness HPI Narrative: 80-year-old gentleman with a history of prior TIAs, hyperlipidemia, hypertension and a history of his legs simply giving out on him. He was seen and evaluated in the emergency department on December 22. After reviewing Neurology notes he was started on Keppra and he felt that he was improving somewhat. He was seen by his primary care physician, Dr. Barcenas who actually increase the dose and that seems to be going better. He has been doing a continued outpatient evaluation for these episodes of standing and nearly falling down. Use having a carotid ultrasound done today and when he stood up he had a episode where he almost fell again. Initially staff were unable to get a blood pressure, he was awake and talking, on arrival in the emergency department initial blood pressure was 153/76. Given that he had a full ER evaluation on December 22, is completing a continued outpatient evaluation and seems to be back to his baseline with a event for which he is in the middle of a workup being witnessed by medical staff we opted to not proceed with assertive workup today. Related Data Home Medications Medication Instructions Recorded Confirmed hydrocodone 10 mg-chlorpheniramine 5 ml PO Q12H PRN Cough 03/02/19 03/02/19 8 mg/5 mL oral susp extend.rel 12hr multivitamin 1 tab PO DAILY 03/02/19 03/02/19 omeprazole 20 mg capsule,delayed 20 mg PO DAILY 03/02/19 03/02/19 release sildenafil (pulm.hypertension) 20 40 - 100 mg PO PRN PRN Erectile 03/02/19 03/02/19 mg tablet Dysfunction Previous Rx's Medication Instructions Recorded aspirin 81 mg tablet,delayed 162 mg (2 x 81 mg) PO DAILY #180 03/04/19 release tabs atorvastatin 20 mg tablet (Lipitor) 20 mg PO BEDTIME #180 tabs 03/04/19 clopidogrel 75 mg tablet 75 mg PO DAILY #21 tabs 03/04/19 lisinopril 10 mg tablet 10 mg PO DAILY HTN #30 tabs 03/04/19 levetiracetam 500 mg tablet 500 mg PO BID #60 tabs 12/23/23 Allergies Allergy/AdvReac Type Severity Reaction Status Date / Time No Known Drug Allergies Allergy Verified 01/14/24 14:41 Review of Systems Review of Systems Narrative: Pertinent positive and negative findings as per HPI Patient History Medical History (Updated 01/14/24 @ 15:15 by Johnna Diaz MD) Myoclonus Insomnia GERD (gastroesophageal reflux disease) TIA (transient ischemic attack) Social History household members: spouse Smoking Status: Never smoker alcohol intake: current substance use type: does not use Smoking Status: Never smoker alcohol intake frequency: a few times a week Substance Use Type: does not use Exam Initial Vital Signs Initial Vital Signs: Vital Signs Pulse Rate 70 01/14/24 14:41 Respiratory Rate 12 01/14/24 14:41 Blood Pressure 153/98 H 01/14/24 14:41 Pulse Oximetry 95 01/14/24 14:41 Oxygen Delivery Method Room Air 01/14/24 14:41 General: Alert appropriate in no acute distress Respiratory: Able to speak in full sentences, no obvious respiratory distress Skin: No obvious rashes, warm and dry Neurologic: Grossly intact no obvious asymmetries or abnormalities Psych: appropriate insight and affect, cooperative Course Vital Signs Vital signs: Vital Signs - 8 hr 01/14/24 14:41 01/14/24 14:44 Pulse Rate 70 Pulse Rate [Orthostatic Lying] 70 Pulse Rate [Orthostatic Sitting] 71 Pulse Rate [Orthostatic Standing] 71 Respiratory Rate 12 Blood Pressure 153/98 H Blood Pressure [Orthostatic Lying] 153/98 H Blood Pressure [Orthostatic Sitting] 154/90 H Blood Pressure [Orthostatic Standing] 114/74 Pulse Oximetry 95 Oxygen Delivery Method Room Air MDM - Fall MDM Narrative Medical decision making narrative: 83-year-old gentleman currently in the middle of fairly extensive both in an outpatient workup for episodes where his legs were giving out on him. He has been having some myoclonic jerks has recently been started on Keppra which seems to help with that. He is taking his blood pressure medications. He and his both note when he stands up rapidly his legs simply gave out on him and he almost falls to the ground. He had a witnessed episode of this after getting off the table following a carotid ultrasound study in diagnostic imaging. After being brought to the emergency department completely back to his baseline I reviewed his care with Dr. Barcenas. He and his both note that he seems to have heart palpitations associated with these episodes. Next step in the outpatient workup is a Zio patch. Dr. Barcenas will get this ordered and we will contact the patient to have placed. In the meantime he continues to drink a large glass of water, is cooperative, appropriate, delightfully chatty and clearly in no acute distress. Additional workup was not pursued in the emergency department and they will follow up with Dr. Barcenas. Discharge Plan Departure Patient Disposition: Home Clinical Impression: Bilateral leg weakness Activity Restrictions/Additional Instructions: Thank you for coming in today After you stood up from the table from having a carotid ultrasound you had 1 of your previously described episodes of your legs giving out and almost falling. Staff and ultrasound were unable to find your blood pressure and brought you to the emergency department where you were alert and chatting as we are continuing to try to document your blood pressure. Your heart rate and blood pressure were very appropriate in the emergency department. You were able to eat and drink and in fact comfortably finished off a large glass of water while in the ER. Given the fact that we had done a fairly thorough workup approximately 3 weeks ago in the ER, you have seen Dr. Barcenas in the meantime, additional studies are being ordered together we chose to not proceed with any additional ER evaluation. You had mentioned some heart rhythm concerns associated with these episodes. The next step in your workup will be to further evaluate your heart rhythm. Dr. Barcenas's office will contact you regarding a Zio patch. This is a an electronic pad that is attached to your chest wall and measures your heart rate and rhythm for the 2 weeks that you are wearing it. In the meantime, please do continue all of your usual medications. Make sure that you are drinking plenty of fluids. Please make sure that you are taking an extended period of time when going from a sitting to a standing position and I would strongly encourage you to have your walker immediately available. Please do follow up with Dr. Barcenas Prescriptions: No Action levetiracetam 500 mg tablet 500 mg PO BID Qty: 60 1RF omeprazole 20 mg Capsule,Delayed Release(Dr/Ec) 20 mg PO DAILY hydrocodone-chlorpheniramine 10-8 mg/5 mL Suspension,Extended Rel 12 Hr 5 ml PO Q12H PRN (Reason: Cough) sildenafil (pulm.hypertension) 20 mg Tablet 40 - 100 mg PO PRN PRN (Reason: Erectile Dysfunction) Rx Instructions: 2-5 tablets 1 hour prior to sexual activity multivitamin Tablet 1 tab PO DAILY aspirin 81 mg Tablet,Delayed Release (Dr/Ec) 162 mg PO DAILY Qty: 180 3RF atorvastatin [Lipitor] 20 mg Tablet 20 mg PO BEDTIME Qty: 180 3RF clopidogrel 75 mg Tablet 75 mg PO DAILY Qty: 21 0RF lisinopril 10 mg tablet 10 mg PO DAILY Qty: 30 11RF Referrals: Roddy Barcenas MD [Primary Care Provider] - Stand Alone Forms: Patient Portal/API
[2024-01-14 15:04] VITALS: BP 183/90; PULSE 61; RESP 18; O2SAT 97
== END 2024-01-14 15:25 | disposition home or self-care (01) ==
PROVIDERS: Emergency Provider Emergency Medicine; PCP Family Medicine
DX: R53.1 Weakness (principal); G45.9 Transient cerebral ischemic attack, unspecified; I65.23 Occlusion and stenosis of bilateral carotid arteries; I95.9 Hypotension, unspecified; I65.03 Occlusion and stenosis of bilateral vertebral arteries; M47.816 Spondylosis without myelopathy or radiculopathy, lumbar region; M47.817 Spondylosis without myelopathy or radiculopathy, lumbosacral region; M48.061 Spinal stenosis, lumbar region without neurogenic claudication; M48.07 Spinal stenosis, lumbosacral region; R29.898 Other symptoms and signs involving the musculoskeletal system; R26.89 Other abnormalities of gait and mobility
CPT/HCPCS: 72148; 93880; 99281; 99282

== ENCOUNTER → 2024-02-06 07:43 | Outpatient (CLI) | payer MEDICARE, OTHER, SELFPAY ==
[2019-03-02 19:52] VITALS: BMI 34.6
--- NOTE | 2024-02-06 07:44 | DI.ECHO.S_ITS ---
[facility] : : [address] : [place] : : [id number] : : Phone: [phone] Echocardiogram Report + + :Name: FER ROMANO Study Date: 02/06/2024 Height: 67 in : :[facility] ReadingLocation: Weight: 192 lb : : Gender: Male BSA: 2.0 m2 : :: 1940 Age: 83 yrs BP: 149/100 mmHg: :Reason For Study: TRANSIENT CEREBRAL ISCHEMIC ATTACK : :Ordering Physician: REENA : :SIENNA Performed By: Hector Duong : :Referring: SIENNA VALLES : + + Interpretation Summary The study quality was technically difficult. Left ventricular wall thickness is mild-moderately increased. The ejection fraction is estimated to be 55-60%. Diastolic function could not be accurately assessed due to contradictory data. The left atrium is mildly dilated. Borderline right ventricular enlargement. The right ventricular systolic function is normal. There is moderate to severe mitral regurgitation. There is trace aortic regurgitation. There is mild tricuspid regurgitation. The right ventricular systolic pressure is estimated to be at least 26 mmHg based on an estimated right atrial pressure of 3 mm Hg. The ascending aorta is moderately enlarged, 4.5 cm. Compared to the prior study dated 09/10/2022, the mitral regurgitation has increased. Procedure: A two-dimensional transthoracic echocardiogram with color flow and Doppler was performed. Comparison is made with the echocardiogram of 09/10/22. The study quality was technically difficult. The heart rate ranged between 55-70 bpm during the study. Left Ventricle: The left ventricle is normal in size. Left ventricular wall thickness is mild-moderately increased. The ejection fraction is estimated to be 55-60%. Diastolic function could not be accurately assessed due to contradictory data. Right Ventricle: Borderline right ventricular enlargement. The right ventricular systolic function is normal. Atria: The left atrium is mildly dilated. Right atrial size is normal. The interatrial septum grossly appears intact with no obvious evidence for an atrial septal defect. Mitral Valve: The mitral valve is grossly normal. There is no mitral valve stenosis. There is moderate to severe mitral regurgitation. Aortic Valve: The aortic valve is trileaflet. There is no aortic valve stenosis. There is trace aortic regurgitation. Tricuspid Valve: The tricuspid valve is not well visualized, but is grossly normal. There is no tricuspid stenosis. There is mild tricuspid regurgitation. The right ventricular systolic pressure is estimated to be at least 26 mmHg based on an estimated right atrial pressure of 3 mm Hg. Pulmonic Valve: The pulmonic valve is not well visualized. There is no pulmonic valvular stenosis. There is mild pulmonic regurgitation. Great Vessels: The aortic root is mildly dilated. The ascending aorta is moderately enlarged. The aortic arch is mildly enlarged. The IVC is dilated (diameter is greater than 2.1 cm) yet it collapses greater than 50% with a sniff. This suggests a right atrial pressure of 8 mm Hg. Pericardium/ Pleura There is no pericardial effusion. There is no pleural effusion. MMode/2D Measurements & Calculations LVIDd: 4.9 cm LVOT diam: 2.3 cm LVIDs: 3.7 cm Ao root diam: 4.0 cm FS: 23.9 % asc Aorta Diam: 4.5 cm IVSd: 1.3 cm Ao Arch Diam (Prox Trans): 3.7 cm LVPWd: 1.5 cm LV quinones. diameter/BSA (cm/m^2): 2.4 LV sys. diameter/BSA (cm/m^2): 1.9 LA A2 area: 21.0 cm2 RA long axis: 4.1 cm LA A4 area: 21.4 cm2 RA area: 11.0 cm2 LA length (vol): 5.3 cm RA vol: 25.5 ml LA vol: 72.7 ml RA : 12.8 ml/m2 LA vol index: 36.6 ml/m2 IVC diam: 1.7 cm RVD1 (basal): 4.0 cm RVD2 (mid): 3.6 cm TAPSE: 2.1 cm Doppler Measurements & Calculations Ao V2 max: 110.4 cm/sec LVOT Max Alan: 92.4 cm/sec Ao V2 mean: 76.3 cm/sec LV V1 max P.4 mmHg Ao max P.9 mmHg LV V1 VTI: 20.2 cm Ao mean P.6 mmHg MILES(I,D): 3.3 cm2 Ao V2 VTI: 26.7 cm MILES(V,D): 3.6 cm2 sev ratio: 0.75 MILES indexed to BSA (cm^2/m^2): 1.6 MV E max alan: 88.7 cm/sec TR max alan: 240.6 cm/sec MV A max alan: 96.5 cm/sec TR max P.1 mmHg MV E/A: 0.92 Med Peak E' Alan: 7.0 cm/sec E/E' med: 12.6 Lat Peak E' Alan: 6.5 cm/sec E/E' lat: 13.6 E/e' average: 13.1 MV dec time: 0.19 sec MR ERO: 0.43 cm2 MR PISA: 8.2 cm2 SV(LVOT): 87.2 ml MR flow rate: 302.0 cm3/sec MR PISA radius: 1.1 cm Reading Physician:10:28 AM
== END ==
LOC: ECHO 07:43
PROVIDERS: PCP Family Medicine; Referring Provider Family Medicine; Visit Provider Family Medicine
DX: G45.9 Transient cerebral ischemic attack, unspecified (principal); I08.1 Rheumatic disorders of both mitral and tricuspid valves; I77.810 Thoracic aortic ectasia; I77.89 Other specified disorders of arteries and arterioles
CPT/HCPCS: 93306

== ENCOUNTER 2024-12-12 08:24 | Emergency (ER) | payer MEDICARE, OTHER, SELFPAY ==
[2019-03-02 19:52] VITALS: BMI 34.6
[2024-12-12 08:38] VITALS: BP 166/85; PULSE 70; RESP 17; TEMP 36.6; O2SAT 98; BMI 30.8
--- NOTE | 2024-12-12 08:44 | DI.CT.S_ITS ---
PROCEDURE: CT ANGIO CHEST PE PROTOCOL INDICATIONS: Right-sided pain TECHNIQUE: After the administration of intravenous contrast, 2 mm thick sections acquired from the pulmonary apices to the posterior costophrenic angles. 3-dimensional maximum intensity projection (MIP) coronal and sagittal reformats were then acquired through the thorax. For radiation dose reduction, the following was used: automated exposure control, adjustment of mA and/or kV according to patient size. COMPARISON: None. FINDINGS: Image quality: Diagnostic. Pulmonary arteries: Pulmonary arteries are normal in size, and demonstrate no intraluminal filling defects to suggest central pulmonary embolism. Lower Neck: No enlarged lymph nodes. Thyroid: No thyroid nodules which require sonographic follow up, per consensus guidelines. Axillae: No enlarged lymph nodes. Chest Wall: Unremarkable. Bones: Unremarkable. Lungs and Pleura: No pneumothorax or pleural effusions. No consolidation or suspicious nodules. Heart: Heart size is normal. No pericardial effusion. Coronary artery calcifications, moderate to severe. Thoracic Vessels: No aortic aneurysm. Mediastinum and Gladys: No enlarged lymph nodes. Esophagus: No wall thickening. No hiatal hernia. Upper Abdomen: Cystic changes of the bilateral kidneys. 5 mm left renal stone identified. Additional cortical calcifications of the kidneys are present. Visualized upper abdomen solid organs and bowel loops appear normal. IMPRESSION: No pulmonary embolus. No acute cardiopulmonary process. Coronary artery disease Nonobstructive left nephrolithiasis. Bilateral cystic changes of the kidneys. Dictated by: Andrew Solorzano M.D. on 12/12/2024 at 8:53 Approved by: Andrew Solorzano M.D. on 12/12/2024 at 8:57
--- NOTE | 2024-12-12 08:44 | EKG_ITS ---
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
--- NOTE | 2024-12-12 08:47 | ED.SKABFB ---
HPI - Skin/Abscess/Foreign Bdy General Chief complaint: Skin/Abscess/Foreign Body Stated complaint: RT side/back under arm pit feeling sharp pain Time Seen by Provider: 12/12/24 08:36 Source: patient Mode of arrival: Ambulatory History of Present Illness HPI narrative: Patient here with for complaints of 4 or 5 episodes of sharp pain that last 6-10 seconds under the armpit right side. This started at 11:30 p.m. last night. With syncope. No numbness tingling or weakness. No trouble breathing no nausea and no sweating. Patient does have history of pacemaker/atrial fibrillation/is on warfarin according to the . Denies any left-sided chest pain. No recent illness. No no injury to the chest wall. No recent cough cold congestion. Pain is nonreproducible. Currently no pain at this time. No rash. Related Data Home Medications Medication Instructions Recorded Confirmed hydrocodone 10 mg-chlorpheniramine 5 ml PO Q12H PRN Cough 03/02/19 03/02/19 8 mg/5 mL oral susp extend.rel 12hr multivitamin 1 tab PO DAILY 03/02/19 03/02/19 omeprazole 20 mg capsule,delayed 20 mg PO DAILY 03/02/19 03/02/19 release sildenafil (pulm.hypertension) 20 40 - 100 mg PO PRN PRN Erectile 03/02/19 03/02/19 mg tablet Dysfunction Previous Rx's Medication Instructions Recorded aspirin 81 mg tablet,delayed 162 mg (2 x 81 mg) PO DAILY #180 03/04/19 release tabs atorvastatin 20 mg tablet (Lipitor) 20 mg PO BEDTIME #180 tabs 03/04/19 clopidogrel 75 mg tablet 75 mg PO DAILY #21 tabs 03/04/19 lisinopril 10 mg tablet 10 mg PO DAILY HTN #30 tabs 03/04/19 levetiracetam 500 mg tablet 500 mg PO BID #60 tabs 12/23/23 Allergies Allergy/AdvReac Type Severity Reaction Status Date / Time No Known Drug Allergies Allergy Verified 12/12/24 08:43 Review of Systems Review of Systems Narrative: GENERAL: Negative chills, fatigue, malaise, fever, sweats. HEENT: Negative sinus pain, ear pain, sore throat RESPIRATORY: Negative dyspnea, cough CARDIOVASCULAR: Positive chest pain, negative palpitations GASTROINTESTINAL: Negative vomiting, nausea, abdominal pain : Negative dysuria, frequency, hematuria MUSCULOSKELETAL: Negative muscle or bony pain SKIN: Negative rash, skin lesions NEUROLOGIC: Negative weakness, numbness ROS Unobtainable: All systems reviewed & are unremarkable except as noted in HPI and below Patient History Medical History (Updated 12/12/24 @ 10:55 by Andrew Hook MD) Myoclonus Insomnia GERD (gastroesophageal reflux disease) TIA (transient ischemic attack) Social History household members: spouse Smoking Status: Unknown if ever smoked alcohol intake: current substance use type: does not use Smoking Status: Unknown if ever smoked alcohol intake frequency: a few times a week Exam Narrative Exam Narrative: GENERAL: in no distress, not toxic not dyspneic HEAD: Normocephalic. EYES: Pupils equal round ENT: Mucous membranes moist. NECK: Trachea midline. CARDIOVASCULAR: Regular rate and rhythm, there is a small 3 mm hemangioma no right axillary under the armpit. This is the site where patient states hurts. It is nontender. No pain on coughing movement. No rash otherwise. RESPIRATORY: Clear to auscultation. Breath sounds equal bilaterally. No wheezes, rales, or rhonchi. GASTROINTESTINAL: Abdomen soft, non-tender EXTREMITIES: No gross deformities. BACK: No flank tenderness. NEURO: AOx3. Clear speech SKIN: Warm and dry PSYCH: Not anxious, is cooperative Initial Vital Signs Initial Vital Signs: Vital Signs Temperature 98 F 12/12/24 08:38 Pulse Rate 70 12/12/24 08:38 Respiratory Rate 17 12/12/24 08:38 Blood Pressure 166/85 H 12/12/24 08:38 Pulse Oximetry 98 12/12/24 08:38 Oxygen Delivery Method Room Air 12/12/24 08:38 Course Orders Ordered: ED Orders 12/12/24 08:44 CT angio chest PE protocol Stat EKG-12 Lead Stat 12/12/24 09:06 Complete Blood Count AUTO DIFF Stat Comprehensive Metabolic Panel Stat PTT Partial Thromboplastin Jamie Stat Prothrombin Time INR Stat Troponin & CK Cardiac Panel Stat Discontinued Medications Sodium Chloride (Normal Saline 0.9%) 500 mls @ 1,000 mls/hr IV BOLUS ONE Stop: 12/12/24 09:12 Last Infusion: 12/12/24 10:12 Dose: Infused Documented By: Admin: 12/12/24 09:31 Dose: 1,000 mls/hr Documented By: CONTRERAS Vital Signs Vital signs: Vital Signs - 8 hr 12/12/24 08:38 12/12/24 10:16 12/12/24 10:54 Temperature 98 F Pulse Rate 70 66 60 Respiratory Rate 17 16 19 Blood Pressure 166/85 H 188/98 H 173/93 H Pulse Oximetry 98 96 Oxygen Delivery Method Room Air Room Air 12/12/24 11:01 Temperature Pulse Rate Respiratory Rate 18 Blood Pressure Pulse Oximetry Oxygen Delivery Method MDM - Skin/Abscess/Foreign Bdy Lab Data 12/12/24 09:06 12/12/24 09:06 Labs: Lab Results 12/12/24 Range/Units 09:06 WBC 7.8 (4.5-11.0) X10^3/uL RBC 4.67 (4.5-5.9) X10^6/uL Hgb 15.0 (13.5-17.5) g/dL Hct 43.3 (41-53) % MCV 92.6 (80-100) fL MCH 32.0 (26-34) PG MCHC 34.6 (30-36) % RDW 13.5 (11.6-14.8) % Plt Count 194 (150-400) X10^3/uL Neut % (Auto) 60.4 (50-75) % Lymph % (Auto) 25.7 (25-40) % [place] % (Auto) 9.1 (3-14) % Eos % (Auto) 3.8 (2-4) % Baso % (Auto) 1.0 (0-2) % Neut # (Auto) 4700 (2552-7241) /uL Lymph # (Auto) 2000 (1598-1923) /uL [place] # (Auto) 700 (0-900) /uL Eos # (Auto) 300 (0-450) /uL Baso # (Auto) 100 (0-100) /uL PT 26.4 H (9.4-12.5) SECONDS INR 2.4 H (0.9-1.3) APTT 48 H (25.1-36.5) SECONDS Sodium 138 (137-145) mmol/L Potassium 4.4 (3.4-5.1) mmol/L Chloride 105 (98-107) mmol/L Carbon Dioxide 25 (22-32) mmol/L BUN 28 H (9-20) mg/dL Creatinine 1.31 H (0.66-1.25) mg/dL Estimated GFR 53 L (>60) mL/min BUN/Creatinine Ratio 21.4 (6-22) Glucose 95 (80-110) mg/dL Calcium 9.1 (8.4-10.2) mg/dL Total Bilirubin 1.1 (0.2-1.3) mg/dL AST 24 (17-59) IU/L ALT 18 (<50) IU/L Alkaline Phosphatase 52 (38-126) U/L Total Creatine Kinase 59 (55-170) U/L Troponin I < 0.012 (0.01-0.034) ng/mL Total Protein 7.4 (6.3-8.2) g/dL Albumin 4.2 (3.5-5.0) g/dL Globulin 3.2 (1.7-4.1) g/dL Albumin/Globulin Ratio 1.3 (1.0-2.8) Imaging Data CT scan - chest: Radiologist's Impression: [place] [address] CT Scan Report Signed Patient: King Mcbride MR#: [id number] : 1940 Acct:[id number] Age/Sex: 84 / M Date of Service: 12/12/24 Loc: Accession Number: [id number] Procedure: CT angio chest PE protocol Ordering Provider: Andrew Hook MD PROCEDURE: CT ANGIO CHEST PE PROTOCOL INDICATIONS: Right-sided pain TECHNIQUE: After the administration of intravenous contrast, 2 mm thick sections acquired from the pulmonary apices to the posterior costophrenic angles. 3-dimensional maximum intensity projection (MIP) coronal and sagittal reformats were then acquired through the thorax. For radiation dose reduction, the following was used: automated exposure control, adjustment of mA and/or kV according to patient size. COMPARISON: None. FINDINGS: Image quality: Diagnostic. Pulmonary arteries: Pulmonary arteries are normal in size, and demonstrate no intraluminal filling defects to suggest central pulmonary embolism. Lower Neck: No enlarged lymph nodes. Thyroid: No thyroid nodules which require sonographic follow up, per consensus guidelines. Axillae: No enlarged lymph nodes. Chest Wall: Unremarkable. Bones: Unremarkable. Lungs and Pleura: No pneumothorax or pleural effusions. No consolidation or suspicious nodules. Heart: Heart size is normal. No pericardial effusion. Coronary artery calcifications, moderate to severe. Thoracic Vessels: No aortic aneurysm. Mediastinum and Gladys: No enlarged lymph nodes. Esophagus: No wall thickening. No hiatal hernia. Upper Abdomen: Cystic changes of the bilateral kidneys. 5 mm left renal stone identified. Additional cortical calcifications of the kidneys are present. Visualized upper abdomen solid organs and bowel loops appear normal. IMPRESSION: No pulmonary embolus. No acute cardiopulmonary process. Coronary artery disease Nonobstructive left nephrolithiasis. Bilateral cystic changes of the kidneys. Dictated by: Andrew Solorzano M.D. on 12/12/2024 at 8:53 Approved by: Andrew Solorzano M.D. on 12/12/2024 at 8:57 [facility] Narrative Medical decision making narrative: Patient here with for complaints of 4 or 5 episodes of sharp pain that last 6-10 seconds under the armpit right side. This started at 11:30 p.m. last night. With syncope. No numbness tingling or weakness. No trouble breathing no nausea and no sweating. Patient does have history of pacemaker/atrial fibrillation/is on warfarin according to the . Denies any left-sided chest pain. No recent illness. No no injury to the chest wall. No recent cough cold congestion. Pain is nonreproducible. Currently no pain at this time. No rash. After history and exam, CBC CMP troponin EKG CT chest normal saline MDM Medical records reviewed: No recent visit for this complaint Differential considered: Includes but not limited to pneumonia costochondritis pleurisy pulmonary embolism pneumonia Lab Test results independently reviewed as above. Pertinent findings: WBC 7.8 hemoglobin 15.0 INR 2.4 sodium 138 potassium 4.4 BUN 28 creatinine 1.31 GFR 53 troponin less than 0.012 Independently reviewed EKG atrial sensed ventricular paced rate 64 Imaging studies independently reviewed: CT chest no acute finding Consultations: None indicated at this time Re-evaluations: Blood pressure 173/93. Patient asymptomatic at this time. Never had chest discomfort during course of stay. Blood pressure noted, he states he is slightly anxious. and patient and I have agreed not to starting blood pressure medication as he feels anxious and they would like to monitor the blood pressure at home with keeping a journal. They will see their family doctor next week for re-evaluation. Return precautions reviewed. They desire discharge home. Discussion: Appropriate for discharge home. Exam is reassuring. Laboratory studies imaging studies are reassuring EKG reassuring. Patient had atypical right-sided chest discomfort that comes and goes and lasts less than 10 seconds. No episodes during course of stay. Return precautions reviewed. They desire discharge home. Diagnosis: Atypical right-sided chest pain Discharge Plan Departure Patient Disposition: Home Clinical Impression: Right-sided chest pain Instructions: Essential Hypertension, DI for Atypical Chest Pain Activity Restrictions/Additional Instructions: Please see family doctor next week for re-evaluation of your blood pressure. Please call on Saturday to make appointment. At this time your blood pressure was elevated but your symptoms for today is likely not related to it, sometimes it is related to being anxious in the hospital setting. We have agreed together to hold on starting any blood pressure medication until you have been seen by your family doctor, Dr. Barcenas. Please do keep a journal of your blood pressure in the morning and at night. Return if worse if any questions or concerns. Your laboratory studies and exam and imaging studies are reassuring today Prescriptions: No Action levetiracetam 500 mg tablet 500 mg PO BID Qty: 60 1RF omeprazole 20 mg Capsule,Delayed Release(Dr/Ec) 20 mg PO DAILY hydrocodone-chlorpheniramine 10-8 mg/5 mL Suspension,Extended Rel 12 Hr 5 ml PO Q12H PRN (Reason: Cough) sildenafil (pulm.hypertension) 20 mg Tablet 40 - 100 mg PO PRN PRN (Reason: Erectile Dysfunction) Rx Instructions: 2-5 tablets 1 hour prior to sexual activity multivitamin Tablet 1 tab PO DAILY aspirin 81 mg Tablet,Delayed Release (Dr/Ec) 162 mg PO DAILY Qty: 180 3RF atorvastatin [Lipitor] 20 mg Tablet 20 mg PO BEDTIME Qty: 180 3RF clopidogrel 75 mg Tablet 75 mg PO DAILY Qty: 21 0RF lisinopril 10 mg tablet 10 mg PO DAILY Qty: 30 11RF Referrals: Roddy Barcenas MD [Primary Care Provider] - Stand Alone Forms: Patient Portal/API/Survey
[2024-12-12 09:16] LABS: Add Manual Diff / Slide Review NO; Basophils Absolute Auto 100 /uL (0-100); Eosinophils Absolute Auto 300 /uL (0-450); Eosinophils Percent Auto 3.8 % (2-4); Hematocrit 43.3 % (41-53); Lymphocytes Absolute Auto 2000 /uL (1100-4500); Lymphocytes Percent Auto 25.7 % (25-40); Mean Corpuscular HGB Conc 34.6 % (30-36); Mean Corpuscular Volume 92.6 fL (80-100); Monocytes Absolute Auto 700 /uL (0-900); Monocytes Percent Auto 9.1 % (3-14); Neutrophils Absolute Auto 4700 /uL (1500-7000); Neutrophils Percent Auto 60.4 % (50-75); Platelet Count 194 X10^3/uL (150-400); Red Blood Cell Count 4.67 X10^6/uL (4.5-5.9); Red Cell Distribution Width 13.5 % (11.6-14.8); White Blood Cell Count 7.8 X10^3/uL (4.5-11.0)
[2024-12-12 09:26] LABS: INR 2.4 (0.9-1.3); Prothrombin Time 26.4 SECONDS (9.4-12.5)
[2024-12-12 09:28] LABS: PTT Partial Thromboplastin Tim 48 SECONDS (25.1-36.5)
[2024-12-12 09:31] LABS: Alanine Aminotransferase 18 IU/L (<50); Albumin 4.2 g/dL (3.5-5.0); Albumin Globulin Ratio 1.3 (1.0-2.8); Alkaline Phosphatase 52 U/L (38-126); Aspartate Aminotransferase 24 IU/L (17-59); BUN Creatinine Ratio 21.4 (6-22); Bilirubin Total 1.1 mg/dL (0.2-1.3); Blood Urea Nitrogen 28 mg/dL (9-20); Calcium 9.1 mg/dL (8.4-10.2); Carbon Dioxide 25 mmol/L (22-32); Chloride 105 mmol/L (98-107); Creatine Kinase 59 U/L (55-170); Estimated Glomerular Filt Rate 53 mL/min (>60); Globulin 3.2 g/dL (1.7-4.1); Glucose 95 mg/dL (80-110); HEMOLYSIS 36 (0-50); Potassium 4.4 mmol/L (3.4-5.1); Sodium 138 mmol/L (137-145); Total Protein 7.4 g/dL (6.3-8.2)
[2024-12-12] MEDS: SODIUM CHLORIDE 0.9% 500 ML 1000 ML IV (09:31)
[2024-12-12 09:42] LABS: Troponin I < 0.012 ng/mL (0.01-0.034)
--- NOTE | 2024-12-12 10:14 | PC.NURSE ---
Pt states he had sharp right rib pain that took him down to his knees'. pt denies cp/sob. states he has a pace maker. denies n/v/d. pt reports it feels like an ice pick hit him in his side; states it woke him up from his sleep. pt states he has never had pain like this before. states the pain comes and goes. no difficiulty walking. gcs 15.
[2024-12-12 10:16] VITALS: BP 188/98; PULSE 66; RESP 16; O2SAT 96
[2024-12-12 10:54] VITALS: BP 173/93; PULSE 60; RESP 19
[2024-12-12 11:01] VITALS: RESP 18
== END 2024-12-12 11:02 | disposition home or self-care (01) ==
PROVIDERS: Emergency Provider Emergency Medicine; PCP Family Medicine
DX: R07.9 Chest pain, unspecified (principal); I10 Essential (primary) hypertension; R55 Syncope and collapse
CPT/HCPCS: 36415; 71275; 80053; 82550; 84484; 85025; 85610; 85730; 93005; 93010; 96360; 99284; Q9967